=== PATIENT | female | born 1940 | race Caucasian/White ===

== ENCOUNTER → 2017-04-17 | Outpatient (CLI) | payer MEDICARE ==
--- NOTE | 2017-04-17 11:54 | USB ---
Reason for exam: clinical finding. History: Patient is postmenopausal and has history of breast cancer at age 68. Malignant US left CoreBiopsy of the left breast, April 14, 2009. Lumpectomy of the left breast, 2008. Radiation therapy of the left breast, 2008. Saline implants in both breasts, 2002. Took estrogen for 15 years 7 months beginning at age 51. Took progesterone for 15 years 7 months beginning at age 51. Took antineoplastic for 5 years beginning at age 68. Indicated problem(s): palpable abnormality, lump or thickening, and pain in the left breast. Physical Findings: Nurse Summary: left axilla, 0.5cm moves, 3-0.5cm, moves (nurse dw). US Breast LT Prior study comparison: January 10, 2017, mammogram, performed at [facility]. September 13, 2014, mammogram, performed at [facility]. May 05, 2013, mammogram, performed at [facility]. Left breast ultrasound includes all four quadrants, the retroareolar region and axilla. Finding demonstrates a 2.1 x 0.6 x 1.4cm oval, solid lesion at 2 o'clock as seen prior, stable heterogeneous, demonstrating almost 2 years of stability with decrease in size, may represent breast tissue, heterogeneous or sequela of fat necrosis. Axilla scanned, negative. These results were verbally communicated with the patient and result sheet given to the patient on 04/17/17. ASSESSMENT: Benign, BI-RAD 2 RECOMMENDATION: Routine screening mammogram of both breasts in 6 months. Back on schedule for September 2017.
== END | disposition home or self-care (01) ==
LOC: RADUSWWP 10:24
PROVIDERS: ATTEND Internal Medicine
DX: N63.20 Unspecified lump in the left breast, unspecified quadrant (principal)

== ENCOUNTER 2017-11-25 13:02 | Inpatient (IN) | payer MEDICARE ==
--- NOTE | 2017-11-25 13:48 | ED ---
General Adult HPI - General Chief complaint: Psychiatric Symptoms Stated complaint: psych eval Time Seen by Provider: 11/25/17 13:12 Source: patient, RN notes reviewed, old records reviewed Mode of arrival: ambulatory Limitations: no limitations - History of Present Illness Initial comments: 77-year-old female presenting with depression and suicidal ideation. Patient is accompanied by her son. History is obtained from both the patient and her son. The shortness of as stating that she would be better off . She has been prescribed an antidepressant but has not been taking this regularly. According to her son she has been drinking excessive. Her other family members refused to see her. She has been failing to take care of her household, she is not. Her taxes. She is slipping into worsening depression week by week. - Related Data Home Medications Medication Instructions Recorded Confirmed Vit C/E/Zn/Coppr/Lutein/Zeaxan 1 cap PO DAILY 02/15/16 11/25/17 [Preservision Areds 2 Softgel] ALPRAZolam [Xanax] 0.5 mg PO TID PRN 11/25/17 11/25/17 Desvenlafaxine [Desvenlafaxine ER] 50 mg PO DAILY 11/25/17 11/25/17 Allergies Allergy/AdvReac Type Severity Reaction Status Date / Time No Known Allergies Allergy Verified 11/25/17 13:38 Review of Systems ROS Statement: Those systems with pertinent positive or pertinent negative responses have been documented in the HPI. ROS Other: All systems not noted in ROS Statement are negative. Past Medical History Past Medical History: Cancer Additional Past Medical History / Comment(s): breast History of Any Multi-Drug Resistant Organisms: None Reported Past Surgical History: Appendectomy, Breast Surgery Past Psychological History: PTSD Smoking Status: Never smoker Past Alcohol Use History: Occasional Past Drug Use History: None Reported General Exam Limitations: no limitations General appearance: alert, anxious Head exam: Present: atraumatic, normocephalic Eye exam: Present: normal appearance, PERRL, EOMI ENT exam: Present: normal exam Neck exam: Present: normal inspection. Absent: tenderness, meningismus Respiratory exam: Present: normal lung sounds bilaterally. Absent: respiratory distress, wheezes Cardiovascular Exam: Present: regular rate, normal rhythm GI/Abdominal exam: Present: soft. Absent: distended, tenderness Extremities exam: Present: normal inspection, normal capillary refill Back exam: Present: normal inspection. Absent: full ROM, tenderness Neurological exam: Present: alert, oriented X3, CN II-XII intact. Absent: motor sensory deficit Psychiatric exam: Present: depressed, suicidal ideation Skin exam: Present: warm, dry, intact, normal color. Absent: cyanosis, diaphoretic Course Vital Signs 11/25/17 13:09 Temperature 97.7 F Pulse Rate 86 Respiratory 18 Rate Blood Pressure 168/85 O2 Sat by Pulse 96 Oximetry Medical Decision Making - Medical Decision Making 77-year-old female presenting for evaluation of depression and suicidal ideation. Patient is evaluated by EPS in the emergency department and she will be admitted for further psychiatric treatment and evaluation. - Lab Data Result diagrams: 11/25/17 17:48 11/25/17 17:48 Lab Results 11/25/17 11/25/17 11/25/17 Range/Units 13:46 17:48 17:48 WBC 9.4 (3.8-10.6) k/uL RBC 5.03 (3.80-5.40) m/uL Hgb 15.2 (11.4-16.0) gm/dL Hct 45.0 (34.0-46.0) % MCV 89.5 (80.0-100.0) fL MCH 30.3 (25.0-35.0) pg MCHC 33.8 (31.0-37.0) g/dL RDW 13.7 (11.5-15.5) % Plt Count 243 (150-450) k/uL Neutrophils % 76 % Lymphocytes % 16 % Monocytes % 5 % Eosinophils % 1 % Basophils % 0 % Neutrophils # 7.2 (1.3-7.7) k/uL Lymphocytes # 1.5 (1.0-4.8) k/uL Monocytes # 0.5 (0-1.0) k/uL Eosinophils # 0.1 (0-0.7) k/uL Basophils # 0.0 (0-0.2) k/uL Sodium 139 (137-145) mmol/L Potassium 4.0 (3.5-5.1) mmol/L Chloride 103 (98-107) mmol/L Carbon Dioxide 26 (22-30) mmol/L Anion Gap 10 mmol/L BUN 15 (7-17) mg/dL Creatinine 0.60 (0.52-1.04) mg/dL Est GFR (CKD-EPI)AfAm >90 (>60 ml/min/1.73 sqM) Est GFR (CKD-EPI)NonAf 88 (>60 ml/min/1.73 sqM) Glucose 116 H (74-99) mg/dL Calcium 9.8 (8.4-10.2) mg/dL Total Bilirubin 0.9 (0.2-1.3) mg/dL AST 21 (14-36) U/L ALT 24 (9-52) U/L Alkaline Phosphatase 78 (38-126) U/L Total Protein 7.2 (6.3-8.2) g/dL Albumin 4.4 (3.5-5.0) g/dL Urine Color Yellow Urine Appearance Cloudy H (Clear) Urine pH 5.5 (5.0-8.0) Ur Specific [place] 1.016 (1.001-1.035) Urine Protein Trace H (Negative) Urine Glucose (UA) Negative (Negative) Urine Ketones Negative (Negative) Urine Blood Negative (Negative) Urine Nitrite Negative (Negative) Urine Bilirubin Negative (Negative) Urine Urobilinogen <2.0 (<2.0) mg/dL Ur Leukocyte Esterase Large H (Negative) Urine RBC 1 (0-5) /hpf Urine WBC 41 H (0-5) /hpf Ur Squamous Epith Cells 9 H (0-4) /hpf Urine Mucus Occasional H (None) /hpf Urine Opiates Screen Not Detected (NotDetected) Ur Oxycodone Screen Not Detected (NotDetected) Urine Methadone Screen Not Detected (NotDetected) Ur Propoxyphene Screen Not Detected (NotDetected) Ur Barbiturates Screen Not Detected (NotDetected) U Tricyclic Antidepress Not Detected (NotDetected) Ur Phencyclidine Scrn Not Detected (NotDetected) Ur Amphetamines Screen Not Detected (NotDetected) U Methamphetamines Scrn Not Detected (NotDetected) U Benzodiazepines Scrn Not Detected (NotDetected) Urine Cocaine Screen Not Detected (NotDetected) U Marijuana (THC) Screen Not Detected (NotDetected) Disposition Clinical Impression: Depression, Suicidal ideation Disposition: ADMITTED IP TO THIS [facility] Condition: Stable Is patient prescribed a controlled substance at d/c from ED?: No Decision to Admit Reason: Admit from EC Decision Date: 11/25/17 Decision Time: 18:30
[2017-11-25 14:04] LABS: Appearance,Urine Cloudy (Clear); Bilirubin,Urine Negative (Negative); Blood,Urine Negative (Negative); Color,Urine Yellow; Glucose,Urine (UA) Negative (Negative); Ketones,Urine Negative (Negative); Leukocyte Esterase,Urine Large (Negative); Mucus,Urine Occasional /hpf; Nitrite,Urine Negative (Negative); PH, Urine 5.5 (5.0-8.0); Protein,Urine Trace (Negative); RBC,Urine 1 /hpf (0-5); Specific Gravity,Urine 1.016 (1.001-1.035); Squamous Epithelial Cell,Urine 9 /hpf (0-4); Urobilinogen,Urine <2.0 mg/dL (<2.0); WBC,Urine 41 /hpf (0-5)
[2017-11-25 14:10] LABS: Amphetamine Screen,Urine Not Detected (NotDetected); Barbiturate Screen,Urine Not Detected (NotDetected); Benzodiazepines Screen,Urine Not Detected (NotDetected); Cocaine Screen,Urine Not Detected (NotDetected); Methadone Screen, Urine Not Detected (NotDetected); Opiate Screen,Urine Not Detected (NotDetected); Oxycodone Screen, Urine Not Detected (NotDetected); Phencyclidine Screen,Urine Not Detected (NotDetected); Tricyclic Antidepressant,Urine Not Detected (NotDetected); Urn Cannabinoid Scrn Not Detected (NotDetected)
[2017-11-25 17:55] LABS: Basophils % (A) 0 %; Eosinophils # (A) 0.1 k/uL (0-0.7); Eosinophils % (A) 1 %; HGB 15.2 gm/dL (11.4-16.0); Lymphocytes # (A) 1.5 k/uL (1.0-4.8); Lymphocytes % (A) 16 %; MCH 30.3 pg (25.0-35.0); MCHC 33.8 g/dL (31.0-37.0); MCV 89.5 fL (80.0-100.0); Monocytes # (A) 0.5 k/uL (0-1.0); Monocytes % (A) 5 %; Neutrophils # (A) 7.2 k/uL (1.3-7.7); Neutrophils % (A) 76 %; Platelet Count 243 k/uL (150-450); RBC 5.03 m/uL (3.80-5.40); RDW 13.7 % (11.5-15.5); WBC 9.4 k/uL (3.8-10.6)
[2017-11-25 18:05] LABS: ALT 24 U/L (9-52); AST 21 U/L (14-36); Albumin 4.4 g/dL (3.5-5.0); Alkaline Phosphatase 78 U/L (38-126); Anion Gap 10 mmol/L; Blood Urea Nitrogen 15 mg/dL (7-17); Calcium 9.8 mg/dL (8.4-10.2); Carbon Dioxide 26 mmol/L (22-30); Chloride 103 mmol/L (98-107); Glucose 116 mg/dL (74-99); Sodium 139 mmol/L (137-145); Total Bilirubin 0.9 mg/dL (0.2-1.3); Total Protein 7.2 g/dL (6.3-8.2)
[2017-11-25] MEDS ORDERED: MAGNESIUM HYDROXIDE 2,400 MG/10 ML CUP PO PRN (18:24)
[2017-11-25] MEDS ORDERED: MAG HYDROX/AL HYDROX/SIMETH 30 ML CUP PO PRN (18:24)
[2017-11-25] MEDS ORDERED: ACETAMINOPHEN TAB 325 MG TAB PO PRN (18:24)
[2017-11-25] MEDS ORDERED: ALPRAZolam 0.5 MG TAB PO PRN (18:34)
[2017-11-25] MEDS: CEPHALEXIN 500 MG CAP PO SCH (20:33)
--- NOTE | 2017-11-26 06:15 | CONS ---
CONSULTATION DATE OF CONSULTATION: 11/25/17. REASON FOR CONSULTATION: Medical management requested by Dr. Bhatia. CONSULTATION: This is a pleasant 77-year-old patient of Dr. Kyle Mancini. The patient not too long lost her of 60 years of marriage and this is really working on her. Patient feels very lonely, tired, run down. This is interfering with the patient's activities. Also patient was down in [place] where her grandson was in their house and did not make any payments and she had to go to the court for same to repossess the house. Also she is having broken relationship with other the family members and getting into altercations and feels totally frustrated, depressed, does not know what to do including she has not been able to do her taxes. The patient has a history of anxiety depression, does take medications. The patient also has got psoriasis which is under control and macular degeneration. The patient does get injections for the same. The patient is very depressed, suicidal, hence she was admitted to the hospital. REVIEW OF SYSTEMS: CONSTITUTIONAL: Tired. HEENT: None. RESPIRATORY: None. CARDIOVASCULAR: None. GASTROINTESTINAL/GENITOURINARY: None. MUSCULOSKELETAL: None. DERMATOLOGICAL: Some spider bites with irritation lower extremity. HEMATOLOGIC, LYMPHATIC: None. PSYCHIATRY: As above. NEUROLOGICAL: The patient has visual symptoms from recent surgery. PAST MEDICAL HISTORY: Macular degeneration, psoriasis, spider bites, breast cancer. PAST SURGICAL HISTORY: Appendectomy, breast surgery. PSYCH HISTORY: PTSD. SOCIAL HISTORY: No smoking. Alcohol occasionally. The patient is a and recently has been drinking heavy in the hope of not wanting to wake up. HOME MEDICATIONS: 1. Xanax 0.5 p.o. t.i.d. p.r.n. 2. PreserVision AREDS 2 soft gel 1 capsule p.o. daily. 3. Venlafaxine ER 50 mg p.o. daily. ALLERGIES: None. PHYSICAL EXAMINATION: Temperature 98, pulse 79, respiratory 18, blood pressure 140/85, pulse 96% on room air. GENERAL APPEARANCE: Average built, sitting up, somewhat agitated. EYES: Pupils equal. Conjunctivae normal. HEENT: External appearance of nose and ears normal. Oral cavity normal. NECK: JVD not raised. Mass not palpable. RESPIRATORY: Effort, lungs are clear. CARDIOVASCULAR: First and second sounds, no edema. ABDOMEN: Soft, nontender. Liver and spleen not palpable. LYMPHATIC: No lymph node palpable in neck or axillae. PSYCHIATRY: Alert and oriented x3. Mood and affect anxious-appearing. NEUROLOGICAL: Pupils equal. Cranial nerves grossly intact. Power and sensation grossly intact. INVESTIGATIONS: White count 9.4, hemoglobin 15.2, potassium 4, BUN and creatinine normal. UA positive leuko esterase, WBC and 9 squamous cells. ASSESSMENT: 1. Essential hypertension. 2. Macular degeneration. 3. Mild psoriasis especially on the elbows. 4. Spider bites on the lower extremity with healing. PLAN: Patient's psoriasis is mild. Nothing further to be done. The patient may use Benadryl p.r.n. if itching from the spider bite bothers her. For essential hypertension, we will start the patient on lisinopril hydrochlorothiazide. The patient should follow with Dr. Mancini upon discharge. Thank you Dr. Bhatia. MMPAIGE / ELISABETN: [id number] /
[2017-11-26] MEDS: CEPHALEXIN 500 MG CAP PO SCH ×2 (09:33→20:27)
[2017-11-26] MEDS: DESVENLAFAXINE SUCCINATE 50 MG TAB.ER.24H PO SCH (09:33)
[2017-11-26] MEDS: LISINOPRIL-HCTZ 10-12.5 MG 1 EACH TAB PO SCH (09:33)
--- NOTE | 2017-11-26 11:13 | P.HP ---
Psychiatric H&P - . History & Physical: Allergies Allergy/AdvReac Type Severity Reaction Status Date / Time No Known Allergies Allergy Verified 11/25/17 23:29 Vital Signs Temp 97.8 F 11/26/17 05:53 Pulse 62 11/26/17 05:53 Resp 18 11/26/17 05:53 BP 141/66 11/26/17 05:53 Pulse Ox 96 11/25/17 13:09 Intake & Output 11/25/17 11/26/17 11/26/17 18:59 06:59 18:59 Weight 72.575 kg Laboratory Last Values WBC 9.4 k/uL (3.8-10.6) 11/25/17 17:48 RBC 5.03 m/uL (3.80-5.40) 11/25/17 17:48 Hgb 15.2 gm/dL (11.4-16.0) 11/25/17 17:48 Hct 45.0 % (34.0-46.0) 11/25/17 17:48 MCV 89.5 fL (80.0-100.0) 11/25/17 17:48 MCH 30.3 pg (25.0-35.0) 11/25/17 17:48 MCHC 33.8 g/dL (31.0-37.0) 11/25/17 17:48 RDW 13.7 % (11.5-15.5) 11/25/17 17:48 Plt Count 243 k/uL (150-450) 11/25/17 17:48 Neutrophils % 76 % 11/25/17 17:48 Lymphocytes % 16 % 11/25/17 17:48 Monocytes % 5 % 11/25/17 17:48 Eosinophils % 1 % 11/25/17 17:48 Basophils % 0 % 11/25/17 17:48 Neutrophils # 7.2 k/uL (1.3-7.7) 11/25/17 17:48 Lymphocytes # 1.5 k/uL (1.0-4.8) 11/25/17 17:48 Monocytes # 0.5 k/uL (0-1.0) 11/25/17 17:48 Eosinophils # 0.1 k/uL (0-0.7) 11/25/17 17:48 Basophils # 0.0 k/uL (0-0.2) 11/25/17 17:48 Sodium 139 mmol/L (137-145) 11/25/17 17:48 Potassium 4.0 mmol/L (3.5-5.1) 11/25/17 17:48 Chloride 103 mmol/L (98-107) 11/25/17 17:48 Carbon Dioxide 26 mmol/L (22-30) 11/25/17 17:48 Anion Gap 10 mmol/L 11/25/17 17:48 BUN 15 mg/dL (7-17) 11/25/17 17:48 Creatinine 0.60 mg/dL (0.52-1.04) 11/25/17 17:48 Est GFR (CKD-EPI)AfAm >90 (>60 ml/min/1.73 sqM) 11/25/17 17:48 Est GFR (CKD-EPI)NonAf 88 (>60 ml/min/1.73 sqM) 11/25/17 17:48 Glucose 116 mg/dL (74-99) H 11/25/17 17:48 Calcium 9.8 mg/dL (8.4-10.2) 11/25/17 17:48 Total Bilirubin 0.9 mg/dL (0.2-1.3) 11/25/17 17:48 AST 21 U/L (14-36) 11/25/17 17:48 ALT 24 U/L (9-52) 11/25/17 17:48 Alkaline Phosphatase 78 U/L (38-126) 11/25/17 17:48 Total Protein 7.2 g/dL (6.3-8.2) 11/25/17 17:48 Albumin 4.4 g/dL (3.5-5.0) 11/25/17 17:48 TSH 0.930 mIU/L (0.465-4.680) 11/25/17 17:48 Urine Color Yellow 11/25/17 13:46 Urine Appearance Cloudy (Clear) H 11/25/17 13:46 Urine pH 5.5 (5.0-8.0) 11/25/17 13:46 Ur Specific [place] 1.016 (1.001-1.035) 11/25/17 13:46 Urine Protein Trace (Negative) H 11/25/17 13:46 Urine Glucose (UA) Negative (Negative) 11/25/17 13:46 Urine Ketones Negative (Negative) 11/25/17 13:46 Urine Blood Negative (Negative) 11/25/17 13:46 Urine Nitrite Negative (Negative) 11/25/17 13:46 Urine Bilirubin Negative (Negative) 11/25/17 13:46 Urine Urobilinogen <2.0 mg/dL (<2.0) 11/25/17 13:46 Ur Leukocyte Esterase Large (Negative) H 11/25/17 13:46 Urine RBC 1 /hpf (0-5) 11/25/17 13:46 Urine WBC 41 /hpf (0-5) H 11/25/17 13:46 Ur Squamous Epith Cells 9 /hpf (0-4) H 11/25/17 13:46 Urine Mucus Occasional /hpf (None) H 11/25/17 13:46 Urine Opiates Screen Not Detected (NotDetected) 11/25/17 13:46 Ur Oxycodone Screen Not Detected (NotDetected) 11/25/17 13:46 Urine Methadone Screen Not Detected (NotDetected) 11/25/17 13:46 Ur Propoxyphene Screen Not Detected (NotDetected) 11/25/17 13:46 Ur Barbiturates Screen Not Detected (NotDetected) 11/25/17 13:46 U Tricyclic Antidepress Not Detected (NotDetected) 11/25/17 13:46 Ur Phencyclidine Scrn Not Detected (NotDetected) 11/25/17 13:46 Ur Amphetamines Screen Not Detected (NotDetected) 11/25/17 13:46 U Methamphetamines Scrn Not Detected (NotDetected) 11/25/17 13:46 U Benzodiazepines Scrn Not Detected (NotDetected) 11/25/17 13:46 Urine Cocaine Screen Not Detected (NotDetected) 11/25/17 13:46 U Marijuana (THC) Screen Not Detected (NotDetected) 11/25/17 13:46 11/26/17 11:01 IDENTIFYING DATA: This patient is a 77-year-old who presents with acute symptoms of depression with suicidal ideation. HPI: The patient was brought to the hospital by her son as he was concerned for her safety. The patient reported feeling significantly depressed. She has been tearful on a regular basis. Appetite is been very low and she has lost 20 pounds over the last 2-3 months. Sleep has been fragmented. She described herself as feeling very lonely she feels lost and directionless. She does have hopelessness thinking. She frequently has passive thoughts of not wanting to wake up. She had given consideration to taking medication with alcohol as a means to overdose. This occurs in the context of losing her cancer in February 2017. She had cared for him for approximately 22 months before his . They were for 60 years and she states they had a great marriage and she doesn't know how to go on without him. She has been isolating at home she has not been connecting with her friends. Equally stressful she feels her sons have abandoned her except for 1 son who has been helping. She describes having a recent verbal altercation with her granddaughter. She states that a grandson in [place] took advantage of the situation leaving her with an empty damaged house that she needs to have repaired and soul. He is endorsing no significant anxiety symptoms on a regular basis she endorses no panic attacks. She states that she will use of Xanax 0.25 mg about twice a week when she feels overwhelmed. She is reporting no homicidal ideation she reports no auditory or visual hallucinations or any specific delusions. She states she has no firearms at home. PAST PSYCHIATRIC HISTORY: No prior inpatient psychiatric admissions, no history of suicide attempts, primary care physician put her on Pristiq 50 mg she states that she accidentally compliant with it only about every other day. She is prescribed Xanax 0.5 mg up to 3 times a day as needed. Again she reports using a half tab about twice a week. She may have been on another unknown antidepressant that she cannot recall the name Linda us going through a list of possibilities. She worked with a grief counselor through a local [facility] soon after the of her but she did not find it helpful as they simply provided platitudes. She has been on a list to see a counselor at a local agency for the last 4 weeks. She tried to contact no other agency. PMH: Psoriasis, likely urinary tract infection, macular degeneration, possible recent cellulitis due to a spider bite ALLERGIES: NO KNOWN DRUG ALLERGIES MEDICATIONS: refer to MAR CHEMICAL DEPENDENCY HISTORY: The patient reports using a bottle of wine every 2 weeks. She reports no excessive use of alcohol. She reports no use of marijuana or any other illicit drug. She has never been placed in residential treatment for chemical dependency reasons. FAMILY PSYCHIATRIC HISTORY: "They're all crazy", no known suicides in the family FAMILY CHEMICAL DEPENDENCY HISTORY: Her son is known to have an alcohol use disorder and has been in alf for multiple DUI arrests SOCIAL HISTORY: The patient is 77 years old she is a as of February 2017. She was for 60 years and characterized it as being a great marriage. 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 She has a high school education with some college credits. No history of service. She is originally from the [facility] and has been in the [facility] for numerous years. She has 3 sons she finds one to be helpful the other to have little contact with her. She has 1 younger sister area she indicates she has not socialized with friends in quite some time. Legal history none reported, abuse history none reported. MENTAL STATUS EXAM: The patient is a female appearing younger than her stated age. She wears eyeglasses. She is dressed in her own clothing. Hygiene and grooming are adequate. She is cooperative and pleasant upon approach. She reports a depressed and hopeless mood and she is tearful throughout the session. She describes feeling lost and directionless. She is reporting passive suicidal ideation. She reports no thoughts of harming others. She is reporting no auditory or visual hallucinations or any specific delusions. There is no observed evidence of psychosis. Thought process is linear she demonstrates no tangential thinking loose associations or flight of ideas. She does not appear hypomanic or manic. She demonstrates no verbal or physical aggressiveness or any abnormal involuntary movements. She is fully oriented to person place and date. She is able to easily spell world backwards. Overall affect is dysphoric. STRENGTHS/WEAKNESSES: Strengths: Housing, financial resources, assistance from one of her sons weaknesses: Ongoing grief and loss, strained relationship with several family members INTELLECTUAL FUNCTIONING: Above average IMPRESSIONS: [] 1. Major depressive disorder, recurrent severe without psychosis, complicated bereavement 2. Rule out cluster B traits 3. Urinary tract infection, recent cellulitis, psoriasis, macular degeneration PLAN: The patient has been admitted to the mental health unit voluntarily. We reviewed her presenting symptoms and treatment options. We will continue the Busteriq 50 mg daily and we discussed the importance of her complying with each day. Xanax is available as needed for acute anxiety she is encouraged not to use of medication possible. We discussed the importance of working with an individual therapist to continue processing her grief, re-engaging in activities , and processing difficult family relationships with limit setting. She has been seen by internal medicine for routine history and physical exam. She remains on Keflex. Social work has met with the patient complete a psychosocial assessment. We will monitor her for safety and encourage her participation in the milieu.
[2017-11-27] MEDS: CEPHALEXIN 500 MG CAP PO SCH ×2 (08:51→20:46)
[2017-11-27] MEDS: LISINOPRIL-HCTZ 10-12.5 MG 1 EACH TAB PO SCH (08:51)
[2017-11-27] MEDS: DESVENLAFAXINE SUCCINATE 50 MG TAB.ER.24H PO SCH (08:51)
[2017-11-27 09:33] VITALS: RESP 16
--- NOTE | 2017-11-27 14:33 | P.PN ---
Subjective Progress Note Date: 11/27/17 Principal diagnosis: Major depressive disorder recurrent severe without psychotic features, bereavement I reviewed the medical record and interviewed the patient. She is a 77-year- old woman admitted to the psychiatric unit with depression and suicidal ideation. Dr. Bhatia evaluate her and diagnosed major depressive disorder and complicated bereavement. She has been depressed at least since the of her in February 2017 but also described how overwhelmed she felt caring for him during his long struggle lung cancer. She complained of continued feelings of depression but denied current suicidal ideation or wishes. She talked about her 's struggle with cancer, his suffering and eventual , and ongoing conflict among her large and extended family. She understands that she is depressed and recognizes a need for mental health treatment. She is very interested and engaging in outpatient individual psychotherapy and is on a wait list at a [facility]. Objective - Vital Signs Vital signs: Vital Signs Temp 97.8 F 11/27/17 06:36 Pulse 91 11/27/17 09:32 Resp 16 11/27/17 09:32 BP 114/60 11/27/17 09:32 Pulse Ox 96 11/25/17 13:09 - Psychiatric Psychiatric Comment(s): She presented as a casually dressed and carefully groomed 77-year-old woman who looked younger than his stated age. She made eye contact and attended the interview. She had no prominent physical abnormalities. She had a depressed facial expression and cried intermittently during the interview. She is alert and oriented to person, place and time. She showed psychomotor retardation but no abnormal involuntary movements. Her speech was spontaneous with normal rate, rhythm and volume. Affect was depressed, anxious and not reactive. She denied current suicidal ideation or wishes. She expressed depressive cognitions including hopelessness and helplessness. She did not express ideas reference, paranoid ideation or delusions. Her thinking was abstract and associations were coherent, logical and goal directed. She denied hallucinations and did not appear to be responding to internal stimuli. - Labs CBC & Chem 7: 11/25/17 17:48 11/25/17 17:48 Assessment and Plan Assessment: She is an elderly woman admitted to the psychiatric unit with marked symptoms of depression and suicidal ideation. She has a number of stressors the most significant of which was a of her conflict with family. She has insight on her need for mental health services and treatment. (1) Suicidal ideation Current Visit: Yes Status: Acute Code(s): R45.851 - SUICIDAL IDEATIONS SNOMED Code(s): 2175494 (2) Major depressive disorder, recurrent severe without psychotic features Current Visit: Yes Status: Acute Code(s): F33.2 - MAJOR DEPRESSV DISORDER, RECURRENT SEVERE W/O PSYCH FEATURES SNOMED Code(s): 98471526 (3) Bereavement Current Visit: Yes Status: Acute Code(s): Z63.4 - DISAPPEARANCE AND OF FAMILY MEMBER SNOMED Code(s): 44546882 (4) Family conflict Current Visit: Yes Status: Acute Code(s): Z63.8 - OTHER SPECIFIED PROBLEMS RELATED TO PRIMARY SUPPORT GROUP SNOMED Code(s): 09126534 Plan: Continue inpatient hospitalization. Continue safety precautions. Continue Pristiq 50 mg daily. Consider augmentation strategies either with lithium or second generation antipsychotic. Continue Xanax 0.5 mg twice a day when necessary. Encouraged continued participation in therapeutic groups and activities. machine made shoe unit worker to assist with coordinate aftercare services. Evaluate clinical status and response to treatment on a daily basis.
[2017-11-28 06:43] VITALS: TEMP 98
[2017-11-28] MEDS: CEPHALEXIN 500 MG CAP PO SCH (08:55)
[2017-11-28] MEDS: DESVENLAFAXINE SUCCINATE 50 MG TAB.ER.24H PO SCH (08:55)
[2017-11-28] MEDS: LISINOPRIL-HCTZ 10-12.5 MG 1 EACH TAB PO SCH (08:57)
[2017-11-28 08:58] VITALS: BP 101/54; PULSE 106
--- NOTE | 2017-11-28 16:05 | P.DS ---
Providers Date of admission: 11/25/17 18:06 Attending physician: Ty Bhatia Consults: 11/25/17 18:24 Consult Physician Routine Consulting Provider: Marco Almonte Consult Reason/Comments: H and P and medical management Do you want consulting provider notified?: Yes Primary care physician: Kyle Mancini - Discharge Diagnosis(es) (1) Suicidal ideation Status: Resolved Priority: Low (2) Major depressive disorder, recurrent severe without psychotic features Status: Acute (3) Bereavement Status: Acute (4) Family conflict Status: Acute Hospital Course: The patient is a 77-year-old woman admitted to the psychiatric unit voluntarily with complaints of depression and suicidal ideation. The depression has become progressively worse since the of her in February 2017. He had a long and difficult illness and eventually as a result of metastatic lung cancer. She described conflict with her children, grandchildren and great-grandchildren and conflict between her children all contributing to her depression. She had no prior psychiatric hospitalization or formal mental health treatment. She met with a grief counselor through her oriental [facility]. We admitted her to the psychiatric unit under the care of Dr. Bhatia. He provided a comprehensive biopsychosocial assessment. The technology methodology consultant technician's helper completed initial physical exam and medical history and diagnosis essential hypertension, macular degeneration, mild psoriasis and a spider bilateral lower extremity with healing. He was recommended a lisinopril hydrochlorothiazide 10- 12.5 mg daily for the treatment of hypertension and Keflex 500 twice a day Jay infection secondary to the spider bite. We prescribed Pristiq 50 mg daily for the treatment of depression. She participated in therapeutic groups and posed no management problem. She met with the high school social studies tutor will coordinate aftercare services through [facility] outpatient mental health clinic. At time of discharge she presented as a neatly dressed and casually groomed 77- year-old female who was pleasant on approach. She made eye contact and attended to the interview. She had a blunted but bright facial expression. She had slight psychomotor retardation but no abnormal movements. Her speech was spontaneous with normal rate, rhythm and volume. Affect was depressed but stable and appropriate. She denied suicidal ideation or wishes. She denied homicidal ideation. She denied feeling hopeless, helpless or worthless. She did not express ideas reference, paranoid ideation or delusions. Her thinking was abstract and associations were coherent and logical. She denied hallucinations and didn't appear to be responding to internal stimuli. Patient Condition at Discharge: Stable Plan - Discharge Summary Discharge Rx Participant: No New Discharge Prescriptions: New Cephalexin [Keflex] 500 mg PO BID #14 cap Lisinopril-Hctz 10-12.5 mg [Zestoretic 10-12.5] 1 each PO DAILY #30 tab Continue Vit C/E/Zn/Coppr/Lutein/Zeaxan [Preservision Areds 2 Softgel] 1 cap PO DAILY ALPRAZolam [Xanax] 0.5 mg PO TID PRN PRN Reason: Anxiety Desvenlafaxine [Desvenlafaxine ER] 50 mg PO DAILY #30 tab.er.24h Discharge Medication List Vit C/E/Zn/Coppr/Lutein/Zeaxan [Preservision Areds 2 Softgel] 1 cap PO DAILY [History] ALPRAZolam [Xanax] 0.5 mg PO TID PRN 11/25/17 [History] Cephalexin [Keflex] 500 mg PO BID #14 cap 11/28/17 [Rx] Desvenlafaxine [Desvenlafaxine ER] 50 mg PO DAILY #30 tab.er.24h 11/28/17 [Rx] Lisinopril-Hctz 10-12.5 mg [Zestoretic 10-12.5] 1 each PO DAILY #30 tab [Rx] Follow up Appointment(s)/Referral(s): [facility] [Outside] - 11/29/17 11:00 am (Deandre Castro Please arrive 15 minutes prior to appoitment for paperwork ) Kyle Mancini MD [Primary Care Provider] - 1-2 days Patient Instructions/Handouts: Depression (DC), Grief and Loss (DC) Activity/Diet/Wound Care/Special Instructions: Remove all weapons and firearms from your home; Refrain from street drugs and alcohol; Activity and diet as tolerated; Follow-up with your PCP in 1-2 days; Keep all scheduled follow-up appointments for continuity of care; If you're in need of medication refills, contact your PCP for medical meds. and your aftercare Psychiatrist for psychiatric meds.; If you have any problems, call the Crisis Line at or [phone] in case of emergency or go to the nearest ER for a psychiatric evaluation. Discharge Disposition: HOME SELF-CARE
== END 2017-11-28 15:20 | disposition home or self-care (01) | DRG 885 ==
LOC: EC 13:02 → 3MHU 18:06
PROVIDERS: ADMIT Psychiatry & Neurology Psychiatry; ATTEND Psychiatry & Neurology Psychiatry
DX: F33.2 Major depressive disorder, recurrent severe without psychotic features (principal); R45.851 Suicidal ideations; F41.9 Anxiety disorder, unspecified; L40.9 Psoriasis, unspecified; H35.30 Unspecified macular degeneration; F43.10 Post-traumatic stress disorder, unspecified; I10 Essential (primary) hypertension; W57.XXXA Bitten or stung by nonvenomous insect and other nonvenomous arthropods, initial encounter; T43.296A Underdosing of other antidepressants, initial encounter; T42.4X6A Underdosing of benzodiazepines, initial encounter; Z91.138 Patient's unintentional underdosing of medication regimen for other reason; Z85.3 Personal history of malignant neoplasm of breast; Z90.49 Acquired absence of other specified parts of digestive tract; Z98.890 Other specified postprocedural states; Z79.899 Other long term (current) drug therapy; Z63.4 Disappearance and death of family member; Z63.8 Other specified problems related to primary support group; Z87.440 Personal history of urinary (tract) infections
CPT/HCPCS: 36415; 80053; 80306; 81001; 82075; 84443; 85025; 99285

== ENCOUNTER → 2018-03-19 | Outpatient (CLI) | payer MEDICARE ==
[2018-03-19 08:03] LABS: Blood Urea Nitrogen 16 mg/dL (7-17)
--- NOTE | 2018-03-19 08:52 | CT ---
EXAMINATION TYPE: CT chest w con DATE OF EXAM: 03/19/2018 COMPARISON: NONE HISTORY: Chronic cough CT DLP: 184.9 mGycm. Automated Exposure Control for Dose Reduction was Utilized. TECHNIQUE: CT scan of the thorax is performed following with IV Contrast, patient injected with 100 mL of Isovue 300. FINDINGS: LUNGS: The lungs are grossly clear, there is no concerning parenchymal mass or nodule identified. T here is very mild The cuffing within the lingula and peripheral subpleural reticular opacities with atelectasis on seri es 4 image 36. Peribronchial cuffing is seen on image 31 and 32 within the lingula. Similar findings are seen to a lesser degree within the right middle lobe on image 36 through 38. Very mild bibasilar subsegmental atelectasis is seen. There is no pleural effusion or pneumothorax seen. The tracheobron chial tree is patent. MEDIASTINUM: There are no greater than 1 cm hilar or mediastinal lymph nodes. No pericardial effusi on is seen. Mild coronary artery calcifications are present. OTHER: There are bilateral prepectoral breast implants. Diffuse gastric thickening dependently may re late to incomplete distention. This is also seen at the gastroesophageal junction on series 3 image 5 3. Scattered colonic diverticula are partially visualized. Mild multilevel degenerative changes of th e thoracic spine are noted. IMPRESSION: 1. No pulmonary mass or focal consolidation. However minimal peribronchial cuffing is seen within the lingula and right middle lobe that could relate to infectious bronchitis or reactive airway disease. 2. Thickening at the gastroesophageal junction and throughout the gastric fundus and body that could relate to incomplete distention although further evaluation with esophagram/upper GI or direct visual ization could be performed.
== END ==
LOC: RADCTMAIN 07:20
PROVIDERS: ATTEND Physician Assistant
DX: R05 Cough (principal)
CPT/HCPCS: 82565; 84520; 71260; 36415; Q9967

== ENCOUNTER 2018-03-26 10:24 | Day surgery (SDC) | payer MEDICARE ==
[2018-03-25 11:06] VITALS: BMI 25.7
[~2018-03-26 10:24] MED LIST: HYDROmorphone 0.5 MG/0.5 ML SYRINGE IVP PRN; LACTATED RINGERS 1,000 ML IV SCH
[2018-03-26 11:12] VITALS: RESP 16; TEMP 97.8
[2018-03-26] MEDS ORDERED: PROPOFOL 10 MG/ML 20 ML VIAL IV ONE (12:05)
--- NOTE | 2018-03-26 12:17 | P.PCN ---
Date of Procedure: 03/26/18 Procedure(s) Performed: BRIEF HISTORY: Patient is a 77-year-old, pleasant, white female, scheduled for an upper endoscopy as a part of value should of abnormal CT of the chest that showed thickened distal esophagus. She is otherwise a symptomatic and denies any heartburn, dysphagia or odynophagia. PROCEDURE PERFORMED: Esophagogastroduodenoscopy with biopsy. PREOPERATIVE DIAGNOSIS: Abnormal CT of the chest showing thickened distal esophagus. IV sedation per anesthesia. PROCEDURE: After informed consent was obtained, the patient was brought into the endoscopy unit. IV sedation was administered by Anesthesia under continuous monitoring. Initially the Olympus GIF-140 video endoscope was inserted into the mouth. Esophagus intubated without any difficulty. It was gradually advanced into the stomach and duodenum and carefully examined. The bulb and the second part of the duodenum appeared normal. The scope at this time was withdrawn to the stomach, adequately insufflated with air, and upon careful examination, mucosa of the antrum, body, cardia and the fundus appeared normal. The scope was then withdrawn into the esophagus. The GE junction was located at 39 cm from the incisors. The distal esophageal folds were slightly thickened but there was no evidence of esophagitis, esophageal stricture or esophageal ulcerations. The rest of the esophagus appeared normal. There were no erosions or ulcerations seen and the patient tolerated the procedure well. IMPRESSION: 1. Mild thickening of the distal esophageal folds status post biopsy. 2. No evidence of esophagitis. RECOMMENDATIONS: The findings of this examination were discussed with the patient as well as a family. She was advised to follow with the biopsy results..
[2018-03-26 13:31] VITALS: BP 133/55; PULSE 68
== END 2018-03-26 13:10 | disposition home or self-care (01) ==
LOC: ORWHC2ENDO 10:24
PROVIDERS: ATTEND Internal Medicine Gastroenterology
DX: R94.8 Abnormal results of function studies of other organs and systems (principal); Z79.899 Other long term (current) drug therapy; Z87.891 Personal history of nicotine dependence; F39 Unspecified mood [affective] disorder
CPT/HCPCS: 43239; J2704; 88305

== ENCOUNTER → 2019-06-26 | Outpatient (CLI) | payer MEDICARE ==
--- NOTE | 2019-06-26 09:18 | US ---
EXAMINATION TYPE: US duplex aorta DATE OF EXAM: 06/26/2019 COMPARISON: CT CLINICAL HISTORY: R20.8 Other disturbances of skin sensations. Pt states cold lower extremities EXAM MEASUREMENTS: Abdominal Aorta: Proximal: 2.1 x 2.3 cm Mid: 1.5 x 1.5 cm Distal: 1.5 x 1.7 cm Bifurcation: SERGIO: 1.0 x 1.0 cm NENITA: 0.9 x 0.9 cm No abdominal aortic aneurysm seen. IMPRESSION: No sonographic evidence of abdominal aortic aneurysm in the visualized portions of the ab dominal aorta.
--- NOTE | 2019-07-01 09:11 | P.ARTDOP ---
Arterial Doppler LOWER EXTREMITY ARTERIAL DOPPLER: DATE OF SERVICE: 05/29/2019 Reason for study: : 50. Doppler waveforms: Multiphasic bilaterally throughout. Pulse volume recording: []. Pressure gradients: None. Ankle-brachial indices: Greater than 1 bilaterally. Toe pressures: [] on the right, [] on the left Impression: Normal study.
== END | disposition home or self-care (01) ==
LOC: RADUSWWP 08:44
PROVIDERS: ATTEND Internal Medicine
DX: R20.8 Other disturbances of skin sensation (principal)
CPT/HCPCS: 93922; 93979

== ENCOUNTER → 2019-08-04 | Outpatient (CLI) | payer MEDICARE ==
--- NOTE | 2019-08-04 22:13 | CONS ---
CONSULTATION REASON FOR CONSULTATION: This is a consultation for sleep apnea. HISTORY OF PRESENT ILLNESS: A 78-year-old female patient, comes in for sleep apnea evaluation. The patient is 78, and she is diagnosed recently having some dementia. The patient is currently taking Aricept. She was diagnosed having Alzheimer's dementia by Dr. Arndt her neurologist in [place]. At the same time, there is a concern that she may have an underlying sleep apnea. The patient also has dysregulated and abnormal sleep schedule. She is going to bed at various times. She is waking up various times in the morning. For instance, she used to go to bed around 10 p.m., and currently she is staying up and she goes to bed somewhere between 3 and 4 a.m. and she gets out of bed around 11 am in the morning. She averages around 7 hours of sleep and she may take naps during the day. Things got worse after her and after she retired. She wakes up tired and she has problems with memory and concentration. As mentioned, this could be in part related to her underlying dementia. She has been also told to stop breathing and she occasionally wakes up gasping for air. This obviously raises the concern for sleep apnea. No nocturnal chest pain, heartburn or shortness of breath. Her current Cranston score of 12. No sleep paralysis. No hallucinations. No cataplexy. No nocturia. PAST MEDICAL HISTORY: Dementia of the Alzheimer's type, and chronic sinus allergies. SURGICAL HISTORY: Includes lumpectomy. DRUG ALLERGIES: Not known. OUTPATIENT MEDICATION: Includes Zoloft and Aricept, glaucoma related eyedrops and Lolis for nasal congestion and current drainage. SOCIAL HISTORY: The patient is a nonsmoker. No history of alcohol. No history of IV drugs. FAMILY HISTORY: Negative for sleep breathing disorder. The patient's . Son is healthy. REVIEW OF SYSTEMS: Fourteen-point review of system was done. No reported history of nocturnal chest pain. No shortness of breath, heartburn. She is a nose breather. She does not grind her teeth. No insomnia. No symptoms of restless from lower extremities. No sleep paralysis. No hallucinations. No cataplexy. No head trauma. No meningitis. PHYSICAL EXAMINATION: BP 141/83, pulse is 62, respirations 16, temp 98.3. Saturation 98% on room air. Height is 5 feet 4 inches, weight is 169 and BMI 25.8, and neck size is 13.5 inches. General appearance: Calm and comfortable. Head is atraumatic, normocephalic. NECK: Supple. There is no JVD. No goiter or neck masses. Mallampati class IV. LUNGS: Clear to auscultation. HEART: Sounds are regular rate and rhythm. Normal S1, S2. No S3, S4. No murmurs. ABDOMEN: Soft, nontender. No organomegaly. EXTREMITIES: No edema. No cyanosis or clubbing. NEUROLOGIC: Some mild cognitive impairment including memory problems. IMPRESSION: 1. Chronic hypersomnia. Cranston score of 12. 2. Irregular sleep-wake cycle. 3. Possible obstructive sleep apnea as the patient has snoring and witnessed apneas according to the family members. 4. Memory deficits probably related to underlying dementia. Sleep apnea probably has no major contribution to that. 5. Chronic sinus allergies. 6. History of depression. PLAN: Encourage to sleep and wake up at a schedule time. Desired time to go to bed should be 11:00 pm and waking up time should be around 7-8 a.m. in the morning and she was advised to put her alarm for silo operator hour arousals and avoid naps during the day. She would try to keep this scheduled for the same hours every night. We discussed issues related to her sleep schedule and sleep hygiene. The patient will be [facility] weeks time to undergo a polysomnogram to assess her sleep quality as she works on her sleep schedule and quantity. We will continue to follow and make further recommendations based on the results of the sleep study and decide if further treatment is needed. MMODL / IJN: [id number] /
== END | disposition home or self-care (01) ==
LOC: SLEEP 13:58
PROVIDERS: ATTEND Internal Medicine Critical Care Medicine
DX: R06.83 Snoring (principal); J32.9 Chronic sinusitis, unspecified; Z86.59 Personal history of other mental and behavioral disorders; G30.9 Alzheimer's disease, unspecified; F02.80 Dementia in other diseases classified elsewhere, unspecified severity, without behavioral disturbance, psychotic disturbance, mood disturbance, and anxiety; Z79.899 Other long term (current) drug therapy
CPT/HCPCS: 99211

== ENCOUNTER 2021-05-27 09:21 | Emergency (ER) | payer MEDICARE ==
[2021-05-27] MEDS ORDERED: SODIUM CHLORIDE 0.9% 500 ML 500 ML IV STA (09:31)
[2021-05-27] MEDS ORDERED: SODIUM CHLORIDE 0.9% 1,000 ML IV STA (09:31)
--- NOTE | 2021-05-27 09:39 | ED ---
Fall HPI - General Stated Complaint: Black Eye RT Time Seen by Provider: 05/27/21 09:21 Source: patient, EMS, RN notes reviewed, old records reviewed - History of Present Illness Initial Comments: 80-year-old female with a history of vertigo and a history of breast cancer by history was brought in by EMS because of a possible fall patient was noted to have a black eye on the right orbital area she is not recall a fall she denies any pain except for around the orbital area no neck or back pain no fevers chills sweats nausea vomiting patient herself appears to be somewhat of a poor historian per paramedics dementia as suspected. No history available patient has seem at the crew in the lobby of her facility is unclear who called the ambulance. No other current complaints or modifying factors patient was ambulatory MD Complaint: fall - Related Data Home Medications Medication Instructions Recorded Confirmed Donepezil [Aricept] 10 mg PO DAILY 05/27/21 05/27/21 Imipramine [Tofranil] 25 mg PO BID 05/27/21 05/27/21 Latanoprost [Xalatan 0.005%] 1 drop BOTH EYES HS 05/27/21 05/27/21 Memantine [Namenda] 5 mg PO BID 05/27/21 05/27/21 Sertraline [Zoloft] 200 mg PO DAILY 05/27/21 05/27/21 Allergies Allergy/AdvReac Type Severity Reaction Status Date / Time bee venom protein (honey bee) Allergy Swelling Verified 05/27/21 10:59 Review of Systems ROS Statement: Those systems with pertinent positive or pertinent negative responses have been documented in the HPI. ROS Other: All systems not noted in ROS Statement are negative. Past Medical History Past Medical History: Cancer Additional Past Medical History / Comment(s): breast cancer, past history hypertension ,MACULAR DEGENERATION History of Any Multi-Drug Resistant Organisms: None Reported Past Surgical History: Appendectomy, Breast Surgery Additional Past Surgical History / Comment(s): COLONOSCOPY Past Anesthesia/Blood Transfusion Reactions: No Reported Reaction Past Psychological History: PTSD Past Alcohol Use History: Occasional Additional Past Alcohol Use History / Comment(s): STARTED SMOKING AT AGE 16 QUIT AT 40 SMOKED 5 CIG PER DAY Past Drug Use History: None Reported - Past Family History Mother Family Medical History: No Reported History General Exam - General Exam Comments Initial Comments: This is a well-developed well-nourished awake alert no somewhat confused female. Except for the confusion patient otherwise demonstrate a Dell Coma Scale 14 Limitations: altered mental status General appearance: alert, in no apparent distress Head exam: Present: other (Ecchymosis seen about the right orbit including the forehead periorbital region no step-off or crepitation) Eye exam: Present: PERRL, EOMI, other (Evidence of mild arcus senilis) Pupils: Present: normal accommodation ENT exam: Present: mucous membranes dry Neck exam: Present: normal inspection. Absent: tenderness, meningismus, lymphadenopathy Respiratory exam: Present: normal lung sounds bilaterally. Absent: respiratory distress, wheezes, rales, rhonchi, stridor Cardiovascular Exam: Present: regular rate, normal rhythm, normal heart sounds. Absent: systolic murmur, diastolic murmur, rubs, gallop, clicks GI/Abdominal exam: Present: soft, normal bowel sounds. Absent: distended, tenderness, guarding, rebound, rigid Extremities exam: Present: normal inspection, full ROM, normal capillary refill. Absent: tenderness, pedal edema, joint swelling, calf tenderness Back exam: Present: normal inspection Neurological exam: Present: alert, altered, CN II-XII intact Psychiatric exam: Present: normal affect, normal mood Skin exam: Present: warm, dry, intact, normal color. Absent: rash Course Vital Signs 05/27/21 05/27/21 09:34 11:36 Temperature 98.6 F Pulse Rate 78 75 Respiratory 16 18 Rate Blood Pressure 158/89 155/66 O2 Sat by Pulse 94 L 97 Oximetry Medical Decision Making - Medical Decision Making Patient is awake alert on reevaluation I did her family member was present. Patient be discharged follow-up - Lab Data Result diagrams: 05/27/21 10:17 05/27/21 10:17 Lab Results 05/27/21 05/27/21 05/27/21 Range/Units 10:17 10:17 10:17 WBC 10.7 H (3.8-10.6) k/uL RBC 4.68 (3.80-5.40) m/uL Hgb 13.8 (11.4-16.0) gm/dL Hct 42.8 (34.0-46.0) % MCV 91.6 (80.0-100.0) fL MCH 29.6 (25.0-35.0) pg MCHC 32.3 (31.0-37.0) g/dL RDW 13.8 (11.5-15.5) % Plt Count 191 (150-450) k/uL MPV 7.9 Neutrophils % 77 % Lymphocytes % 12 % Monocytes % 6 % Eosinophils % 2 % Basophils % 0 % Neutrophils # 8.3 H (1.3-7.7) k/uL Lymphocytes # 1.3 (1.0-4.8) k/uL Monocytes # 0.7 (0-1.0) k/uL Eosinophils # 0.2 (0-0.7) k/uL Basophils # 0.0 (0-0.2) k/uL PT 13.4 H (9.0-12.0) sec INR 1.3 H (<1.2) APTT 30.1 H (22.0-30.0) sec Sodium 139 (137-145) mmol/L Potassium 4.6 (3.5-5.1) mmol/L Chloride 104 (98-107) mmol/L Carbon Dioxide 26 (22-30) mmol/L Anion Gap 9 mmol/L BUN 15 (7-17) mg/dL Creatinine 0.77 (0.52-1.04) mg/dL Est GFR (CKD-EPI)AfAm 84 (>60 ml/min/1.73 sqM) Est GFR (CKD-EPI)NonAf 73 (>60 ml/min/1.73 sqM) Glucose 99 (74-99) mg/dL Calcium 9.1 (8.4-10.2) mg/dL Magnesium 1.8 (1.6-2.3) mg/dL Total Bilirubin 0.5 (0.2-1.3) mg/dL AST 26 (14-36) U/L ALT 16 (4-34) U/L Alkaline Phosphatase 69 (38-126) U/L Troponin I (0.000-0.034) ng/mL Total Protein 7.0 (6.3-8.2) g/dL Albumin 4.2 (3.5-5.0) g/dL Urine Color Urine Appearance (Clear) Urine pH (5.0-8.0) Ur Specific [place] (1.001-1.035) Urine Protein (Negative) Urine Glucose (UA) (Negative) Urine Ketones (Negative) Urine Blood (Negative) Urine Nitrite (Negative) Urine Bilirubin (Negative) Urine Urobilinogen (<2.0) mg/dL Ur Leukocyte Esterase (Negative) Urine RBC (0-5) /hpf Urine WBC (0-5) /hpf Ur Squamous Epith Cells (0-4) /hpf Urine Mucus (None) /hpf Serum Alcohol <10 mg/dL 05/27/21 05/27/21 Range/Units 10:17 10:23 WBC (3.8-10.6) k/uL RBC (3.80-5.40) m/uL Hgb (11.4-16.0) gm/dL Hct (34.0-46.0) % MCV (80.0-100.0) fL MCH (25.0-35.0) pg MCHC (31.0-37.0) g/dL RDW (11.5-15.5) % Plt Count (150-450) k/uL MPV Neutrophils % % Lymphocytes % % Monocytes % % Eosinophils % % Basophils % % Neutrophils # (1.3-7.7) k/uL Lymphocytes # (1.0-4.8) k/uL Monocytes # (0-1.0) k/uL Eosinophils # (0-0.7) k/uL Basophils # (0-0.2) k/uL PT (9.0-12.0) sec INR (<1.2) APTT (22.0-30.0) sec Sodium (137-145) mmol/L Potassium (3.5-5.1) mmol/L Chloride (98-107) mmol/L Carbon Dioxide (22-30) mmol/L Anion Gap mmol/L BUN (7-17) mg/dL Creatinine (0.52-1.04) mg/dL Est GFR (CKD-EPI)AfAm (>60 ml/min/1.73 sqM) Est GFR (CKD-EPI)NonAf (>60 ml/min/1.73 sqM) Glucose (74-99) mg/dL Calcium (8.4-10.2) mg/dL Magnesium (1.6-2.3) mg/dL Total Bilirubin (0.2-1.3) mg/dL AST (14-36) U/L ALT (4-34) U/L Alkaline Phosphatase (38-126) U/L Troponin I <0.012 (0.000-0.034) ng/mL Total Protein (6.3-8.2) g/dL Albumin (3.5-5.0) g/dL Urine Color Yellow Urine Appearance Clear (Clear) Urine pH 5.5 (5.0-8.0) Ur Specific [place] 1.018 (1.001-1.035) Urine Protein Negative (Negative) Urine Glucose (UA) Negative (Negative) Urine Ketones Negative (Negative) Urine Blood Negative (Negative) Urine Nitrite Negative (Negative) Urine Bilirubin Negative (Negative) Urine Urobilinogen <2.0 (<2.0) mg/dL Ur Leukocyte Esterase Moderate H (Negative) Urine RBC 1 (0-5) /hpf Urine WBC 4 (0-5) /hpf Ur Squamous Epith Cells 3 (0-4) /hpf Urine Mucus Rare H (None) /hpf Serum Alcohol mg/dL - EKG Data -: EKG Interpreted by Oh EKG shows normal: sinus rhythm EKG Comments: Sinus rhythm a 72. Interval 182 QRS duration 84 QT since QTC 424/464 evidence of left atrial enlargement nonspecific septal configuration - Radiology Data Radiology results: report reviewed (Imaging reviewed no evidence of acute processes other than the hematoma noted around the right orbit.), image reviewed Disposition Clinical Impression: Contusion of right orbital tissues Disposition: HOME SELF-CARE Condition: Good Instructions (If sedation given, give patient instructions): Contusion in Adults (ED) Is patient prescribed a controlled substance at d/c from ED?: No Referrals: Kimo Leigh MD [Primary Care Provider] - 1-2 days
--- NOTE | 2021-05-27 10:13 | CT ---
EXAMINATION TYPE: CT brain cspine wo con CT DLP: 1122.5 mGycm, Automated exposure control for dose reduction was used. DATE OF EXAM: 05/27/2021 9:58 AM COMPARISON: CT facial bones and day. CLINICAL INDICATION:Female, 80 years old with history of trauma, right orbital contusion TECHNIQUE: Brain: Multiple axial CT images of the brain were obtained without IV contrast. Cspine: Axial CT images from the skull base to the inferior aspect of T2 we obtained without intraven ous contrast. Coronal and sagittal reformatted images were also reviewed. FINDINGS: Brain: Extra-axial spaces: No abnormal extra-axial fluid collections. Ventricular system: Within normal limits Cerebral parenchyma: No acute intraparenchymal hemorrhage or mass effect. The holden-white junction is well differentiated. Cerebellum: Unremarkable. Mass effect: No evidence of midline shift. Intracranial vasculature: Atherosclerotic calcifications of the intracranial vessels. Soft tissues: Periorbital subcutaneous edema and hematoma. Calvarium/osseous structures: No depressed skull fracture. Paranasal sinuses and mastoid air cells: Clear. Visualized orbits: Orbital contents are intact. Cervical spine: Fracture: None. Osseous structures: Multilevel degenerative disc disease changes with endplate spurring and disc oste ophyte complex's. Ankylosis of the C2 and C3 lateral facets. Vertebral alignment: Within normal limits. Spinal canal/Neural Foramina: No evidence of significant spinal canal narrowing. Moderate C3 C4 neura l foraminal stenosis secondary to joint facet joint arthropathy. Neck soft tissues: Prevertebral soft tissues are within normal limits. Other: The airway is patent. The millimeter right upper lobe pulmonary nodule IMPRESSION: 1. No acute intracranial process. 2. Right periorbital subcutaneous edema/hematoma. 3. No evidence of cervical spine fracture. 4. Mild multilevel degenerative disc disease.
--- NOTE | 2021-05-27 10:15 | CT ---
EXAMINATION TYPE: CT facial bones wo con CT DLP: 797 mGycm, Automated exposure control for dose reduction was used. DATE OF EXAM: 05/27/2021 9:58 AM COMPARISON: Same day. CLINICAL INDICATION:Female, 80 years old with history of trauma, right orbital contusion TECHNIQUE: Multiple unenhanced axial CT images were obtained of the facial bones soft tissue and bone windows. Coronal, axial and sagittal reformatted images were also provided in soft tissue and bone windows and submitted for interpretation. FINDINGS: Right periorbital hematoma/edema. There is no evidence of fracture, subluxation, dislocation. The orbital contents are unremarkable. Th e temporal-mandibular joints appear symmetric. The visualized portion of the paranasal sinuses appear clear. IMPRESSION: Right periorbital hematoma/edema. No evidence of fracture.
--- NOTE | 2021-05-27 10:18 | XR ---
EXAMINATION TYPE: XR chest 2V DATE OF EXAM: 05/27/2021 9:59 AM COMPARISON:None CLINICAL INDICATION:Female, 80 years old with history of trauma; TECHNIQUE: Frontal and lateral views of the chest. FINDINGS: Lungs/Pleura: There is no evidence of pleural effusion, focal consolidation, or pneumothorax. Pulmonary vascularity: Unremarkable. Heart/mediastinum: Cardiomediastinal silhouette is unremarkable. Musculoskeletal: No acute osseous pathology. IMPRESSION: No acute cardiopulmonary disease/process.
[2021-05-27 10:34] LABS: Basophils % (A) 0 %; Eosinophils # (A) 0.2 k/uL (0-0.7); Eosinophils % (A) 2 %; HCT 42.8 % (34.0-46.0); HGB 13.8 gm/dL (11.4-16.0); Lymphocytes # (A) 1.3 k/uL (1.0-4.8); Lymphocytes % (A) 12 %; MCH 29.6 pg (25.0-35.0); MCHC 32.3 g/dL (31.0-37.0); MCV 91.6 fL (80.0-100.0); Mean Platelet Volume 7.9; Monocytes # (A) 0.7 k/uL (0-1.0); Monocytes % (A) 6 %; Neutrophils # (A) 8.3 k/uL (1.3-7.7); Neutrophils % (A) 77 %; Platelet Count 191 k/uL (150-450); RBC 4.68 m/uL (3.80-5.40); RDW 13.8 % (11.5-15.5); WBC 10.7 k/uL (3.8-10.6)
[2021-05-27 10:41] LABS: Appearance,Urine Clear (Clear); Bilirubin,Urine Negative (Negative); Blood,Urine Negative (Negative); Color,Urine Yellow; Glucose,Urine (UA) Negative (Negative); Ketones,Urine Negative (Negative); Leukocyte Esterase,Urine Moderate (Negative); Mucus,Urine Rare /hpf; Nitrite,Urine Negative (Negative); PH, Urine 5.5 (5.0-8.0); Protein,Urine Negative (Negative); RBC,Urine 1 /hpf (0-5); Specific Gravity,Urine 1.018 (1.001-1.035); Squamous Epithelial Cell,Urine 3 /hpf (0-4); Urobilinogen,Urine <2.0 mg/dL (<2.0); WBC,Urine 4 /hpf (0-5)
[2021-05-27 10:42] LABS: ALT 16 U/L (4-34); AST 26 U/L (14-36); African American GFR (CKD) 84 (>60 ml/min/1.73 sqM); Albumin 4.2 g/dL (3.5-5.0); Alcohol <10 mg/dL; Alkaline Phosphatase 69 U/L (38-126); Anion Gap 9 mmol/L; Blood Urea Nitrogen 15 mg/dL (7-17); Calcium 9.1 mg/dL (8.4-10.2); Carbon Dioxide 26 mmol/L (22-30); Chloride 104 mmol/L (98-107); Glucose 99 mg/dL (74-99); Magnesium 1.8 mg/dL (1.6-2.3); Non-African American GFR(CKD) 73 (>60 ml/min/1.73 sqM); Potassium 4.6 mmol/L (3.5-5.1); Sodium 139 mmol/L (137-145); Total Bilirubin 0.5 mg/dL (0.2-1.3)
[2021-05-27 10:46] LABS: INR 1.3 (<1.2); Partial Thromboplastin Time 30.1 sec (22.0-30.0); Prothrombin Time 13.4 sec (9.0-12.0)
[2021-05-27 13:27] VITALS: BP 158/68; PULSE 72; RESP 16; TEMP 98.2
== END 2021-05-27 13:27 | disposition home or self-care (01) ==
LOC: EC 09:21
DX: S05.11XA Contusion of eyeball and orbital tissues, right eye, initial encounter (principal); I10 Essential (primary) hypertension; Z87.891 Personal history of nicotine dependence; Z79.899 Other long term (current) drug therapy; X58.XXXA Exposure to other specified factors, initial encounter
CPT/HCPCS: 36415; 93005; 80053; 83735; 84484; 85025; 85610; 85730; 81001; 71046; 72125; 70486; 70450; 99285; 96360; 96361; G0480; 80320

== ENCOUNTER → 2021-06-09 | Outpatient (CLI) | payer MEDICARE ==
--- NOTE | 2021-06-12 09:45 | MM ---
Reason for exam: additional evaluation requested from prior study. Last mammogram was performed 4 years and 5 months ago. History: Patient is postmenopausal and has history of breast cancer at age 68. Malignant US left CoreBiopsy of the left breast, April 14, 2009. Lumpectomy of the left breast, 2008. Radiation therapy of the left breast, 2008. Saline implants in both breasts, 2002. Took estrogen for 15 years 7 months beginning at age 51. Took progesterone for 15 years 7 months beginning at age 51. Took antineoplastic for 5 years beginning at age 68. Physical Findings: Nurse Summary: 1cm nodule in the left breast at 2 o'clock (nurse db). MG 3D Diag Mammo Imp W/Cad GRETA Bilateral CC, MLO, and ID view(s) were taken. Prior study comparison: January 10, 2017, mammogram, performed at [facility]. July 27, 2015, bilateral MG 3d diag mammo imp w/cad GRETA. The breast tissue is heterogeneously dense. This may lower the sensitivity of mammography. There is no discrete abnormality including area of concern on left subareaolar. Bilateral breast prothesis. No significant new findings when compared with previous films. These results were verbally communicated with the patient and result sheet given to the patient on 06/09/21. ASSESSMENT: Benign, BI-RAD 2 RECOMMENDATION: Routine screening mammogram of both breasts in 1 year.
--- NOTE | 2021-06-12 09:47 | USB ---
Reason for exam: additional evaluation requested from abnormal screening. History: Patient is postmenopausal and has history of breast cancer at age 68. Malignant US left CoreBiopsy of the left breast, April 14, 2009. Lumpectomy of the left breast, 2008. Radiation therapy of the left breast, 2008. Saline implants in both breasts, 2002. Took estrogen for 15 years 7 months beginning at age 51. Took progesterone for 15 years 7 months beginning at age 51. Took antineoplastic for 5 years beginning at age 68. US Breast Limited LT Left limited breast ultrasound including focal area of concern, retroareolar and axilla demonstrates a 2.3 x 0.7 x 1.2cm lesion at 2 o'clock prior measurement 2.1 x 0.6 x 1.4cm, stable. 2 o'clock palpable scanned per Dr. Romero. These results were verbally communicated with the patient and result sheet given to the patient on 06/09/21. ASSESSMENT: Benign, BI-RAD 2 RECOMMENDATION: Routine screening mammogram of both breasts in 1 year.
== END | disposition home or self-care (01) ==
LOC: RADMAMWWP 15:03
PROVIDERS: ATTEND Family Medicine
DX: N64.59 Other signs and symptoms in breast (principal); R92.2 Inconclusive mammogram; Z85.3 Personal history of malignant neoplasm of breast; Z78.0 Asymptomatic menopausal state
CPT/HCPCS: 77066; 76642; G0279; 77062

== ENCOUNTER 2021-06-15 09:55 | Emergency (ER) | payer MEDICARE ==
[2021-06-15] MEDS ORDERED: diphenhydrAMINE 50 MG/ML 1 ML VIAL IVP STA (10:18)
[2021-06-15] MEDS ORDERED: methylPREDNISolone SOD SUCCI 125 MG/2 ML VIAL IV STA (10:18)
[2021-06-15] MEDS ORDERED: FAMOTIDINE 20 MG/2 ML VIAL IV STA (10:18)
--- NOTE | 2021-06-15 10:29 | ED ---
Allergic Reaction HPI - General Chief complaint: Allergic Reaction Stated complaint: Hives Time Seen by Provider: 06/15/21 10:06 Source: EMS Mode of arrival: EMS Limitations: no limitations - History of Present Illness Initial Comments: Patient is an 80-year-old female with a past medical history of breast cancer presents with an allergic reaction. patient reports she used a blanket she has never used before at her assisted living about 10 minutes ago when she broke out in a rash. this is never happened before. patient reports she is allergic to bee s. the rash is itchy, but not painful. patient reports she has not used any new products on her skin. she denies fever, chills, shortness of breath, chest pain , abdominal pain, and throat pain/swelling. - Related Data Home Medications Medication Instructions Recorded Confirmed Donepezil [Aricept] 10 mg PO HS 05/27/21 06/15/21 Imipramine [Tofranil] 25 mg PO BID 05/27/21 06/15/21 Memantine [Namenda] 5 mg PO BID 05/27/21 06/15/21 Sertraline [Zoloft] 200 mg PO DAILY 05/27/21 06/15/21 Dexamethasone 6 mg PO DAILY 06/15/21 06/15/21 Ipratropium [place] 0.06%Nasal 1 - 2 spray EA NOSTRIL DAILY 06/15/21 06/15/21 [Atrovent Nasal 0.06%] Previous Rx's Medication Instructions Recorded Dicyclomine [Bentyl] 20 mg PO QID PRN #8 tablet 06/15/21 Allergies Allergy/AdvReac Type Severity Reaction Status Date / Time bee venom protein (honey bee) Allergy Swelling Verified 06/15/21 10:04 Review of Systems ROS Statement: Those systems with pertinent positive or pertinent negative responses have been documented in the HPI. ROS Other: All systems not noted in ROS Statement are negative. Past Medical History Past Medical History: Cancer Additional Past Medical History / Comment(s): breast cancer, past history hypertension ,MACULAR DEGENERATION History of Any Multi-Drug Resistant Organisms: None Reported Past Surgical History: Appendectomy, Breast Surgery Additional Past Surgical History / Comment(s): COLONOSCOPY Past Anesthesia/Blood Transfusion Reactions: No Reported Reaction Past Psychological History: PTSD Smoking Status: Former smoker Past Alcohol Use History: Occasional Past Drug Use History: None Reported - Past Family History Mother Family Medical History: No Reported History General Exam Limitations: no limitations General appearance: alert, in no apparent distress Head exam: Present: atraumatic, normocephalic, normal inspection Eye exam: Present: normal appearance, PERRL, EOMI. Absent: scleral icterus, conjunctival injection, periorbital swelling ENT exam: Present: normal exam, mucous membranes moist Respiratory exam: Present: normal lung sounds bilaterally. Absent: respiratory distress, wheezes, rales, rhonchi, stridor Cardiovascular Exam: Present: regular rate, normal rhythm, normal heart sounds. Absent: systolic murmur, diastolic murmur, rubs, gallop, clicks GI/Abdominal exam: Present: soft, normal bowel sounds. Absent: distended, tenderness, guarding, rebound, rigid Neurological exam: Present: alert, oriented X3, CN II-XII intact Psychiatric exam: Present: normal affect, normal mood Skin exam: Present: warm, dry, intact, rash, erythema (diffuse urticaria on the neck, back, chest, abdomen, b/l upper extremeties, b/l hands, b/l lower extremities, buttocks, and b/l feet ), urticaria. Absent: normal color, cyanosis, diaphoretic, vesicles, petechiae, pallor Course Vital Signs 06/15/21 06/15/21 09:59 11:17 Temperature 97.8 F Pulse Rate 87 79 Respiratory 18 16 Rate Blood Pressure 126/73 132/73 O2 Sat by Pulse 97 96 Oximetry - Reevaluation(s) Reevaluation #1: patient is resting comfortably in bed. 06/15/21 10:47 Medical Decision Making - Medical Decision Making patient is an 80-year-old female presenting with an allergic reaction resulting in diffuse urticaria all over the body. patient looks well. she is hemodynamically stable. Rash has is almost resolved. Return parameters addressed. Patient will return to ED if rash worsens, or if there is lip/throat swelling, trouble breathing, or vomiting. Disposition Clinical Impression: Allergic reaction Disposition: HOME SELF-CARE Additional Instructions: Take medications as instructed. Return to the ED if there is worsening rash, lip/throat swelling, trouble breathing, or vomiting. Is patient prescribed a controlled substance at d/c from ED?: No Referrals: Kimo Leigh MD [Primary Care Provider] - 1-2 days Time of Disposition: 12:14
[2021-06-15 12:53] VITALS: BP 128/76; PULSE 83; RESP 18; TEMP 97.7
== END 2021-06-15 12:40 | disposition home or self-care (01) ==
LOC: EC 09:55
DX: T78.40XA Allergy, unspecified, initial encounter (principal); I10 Essential (primary) hypertension; Z91.030 Bee allergy status; Z87.891 Personal history of nicotine dependence
CPT/HCPCS: 99283; 96374; 96375; J1200; J2930

== ENCOUNTER 2021-06-16 07:26 | Emergency (ER) | payer MEDICARE ==
[2021-06-16 07:33] VITALS: BP 136/68; PULSE 101; RESP 20; TEMP 97.3
[2021-06-16] MEDS ORDERED: diphenhydrAMINE 50 MG/ML 1 ML VIAL IM STA (07:49)
--- NOTE | 2021-06-16 07:53 | ED ---
General Adult HPI - General Chief complaint: Skin/Abscess/Foreign Body Stated complaint: Hives/Revisit Time Seen by Provider: 06/16/21 07:38 Source: patient, RN notes reviewed Mode of arrival: ambulatory Limitations: no limitations - History of Present Illness Initial comments: 80-year-old female presents to the emergency room for a chief complaint of h tonia. Patient was seen here yesterday because she started to have hives. She was given Benadryl Solu-Medrol and Pepcid. She was discharged home with anything. Last night the hives started to keep up her neck and this concerned the staff of [facility]. They called her daughter to bring her back in today. Patient is a have any swelling of her lips tongue or throat or difficulty breathing or swallowing. They did Benadryl throughout the night, not sure when the last time she got Benadryl was. They will call and asked.Patient has no other complaints at this time including shortness of breath, chest pain, abdominal pain, nausea or vomiting, headache, or visual changes. - Related Data Home Medications Medication Instructions Recorded Confirmed Donepezil [Aricept] 10 mg PO HS 05/27/21 06/15/21 Imipramine [Tofranil] 25 mg PO BID 05/27/21 06/15/21 Memantine [Namenda] 5 mg PO BID 05/27/21 06/15/21 Sertraline [Zoloft] 200 mg PO DAILY 05/27/21 06/15/21 Dexamethasone 6 mg PO DAILY 06/15/21 06/15/21 Ipratropium [place] 0.06%Nasal 1 - 2 spray EA NOSTRIL DAILY 06/15/21 06/15/21 [Atrovent Nasal 0.06%] Previous Rx's Medication Instructions Recorded Dicyclomine [Bentyl] 20 mg PO QID PRN #8 tablet 06/15/21 Famotidine [Pepcid] 20 mg PO BID #30 tablet 06/16/21 predniSONE 50 mg PO DAILY #5 tablet 06/16/21 Allergies Allergy/AdvReac Type Severity Reaction Status Date / Time bee venom protein (honey bee) Allergy Swelling Verified 06/16/21 07:33 Review of Systems ROS Statement: Those systems with pertinent positive or pertinent negative responses have been documented in the HPI. ROS Other: All systems not noted in ROS Statement are negative. Past Medical History Past Medical History: Cancer Additional Past Medical History / Comment(s): breast cancer, past history hypertension ,MACULAR DEGENERATION History of Any Multi-Drug Resistant Organisms: None Reported Past Surgical History: Appendectomy, Breast Surgery Additional Past Surgical History / Comment(s): COLONOSCOPY Past Anesthesia/Blood Transfusion Reactions: No Reported Reaction Past Psychological History: PTSD Smoking Status: Former smoker Past Alcohol Use History: Occasional Past Drug Use History: None Reported - Past Family History Mother Family Medical History: No Reported History General Exam Limitations: no limitations General appearance: alert, in no apparent distress Head exam: Present: atraumatic Eye exam: Present: normal appearance, PERRL, EOMI. Absent: scleral icterus, conjunctival injection ENT exam: Present: normal exam, mucous membranes moist Neck exam: Present: normal inspection, full ROM. Absent: tenderness Respiratory exam: Present: normal lung sounds bilaterally. Absent: respiratory distress, wheezes Cardiovascular Exam: Present: regular rate, normal rhythm, normal heart sounds GI/Abdominal exam: Present: soft, normal bowel sounds. Absent: distended, tenderness Neurological exam: Present: alert Course Vital Signs 06/16/21 07:30 Temperature 97.3 F L Pulse Rate 101 H Respiratory 20 Rate Blood Pressure 136/68 O2 Sat by Pulse 97 Oximetry Medical Decision Making - Medical Decision Making She will be prescribed prednisone and Pepcid for home. She will continue Benadryl every 6 hours. She will follow-up with her doctor. She will return here for any worsening symptoms. Disposition Clinical Impression: Urticaria Disposition: HOME SELF-CARE Condition: Good Instructions (If sedation given, give patient instructions): Urticaria (ED) Additional Instructions: Please take Benadryl every 6 hours. Take prednisone and Pepcid as directed. Follow-up with primary care. Return for any worsening symptoms. Prescriptions: Famotidine [Pepcid] 20 mg PO BID #30 tablet predniSONE 50 mg PO DAILY #5 tablet Is patient prescribed a controlled substance at d/c from ED?: No Referrals: Kimo Leigh MD [Primary Care Provider] - 1-2 days Time of Disposition: 07:52
== END 2021-06-16 08:18 | disposition home or self-care (01) ==
LOC: EC 07:26
DX: L50.9 Urticaria, unspecified (principal); F43.12 Post-traumatic stress disorder, chronic; Z85.3 Personal history of malignant neoplasm of breast; Z90.49 Acquired absence of other specified parts of digestive tract; Z87.891 Personal history of nicotine dependence
CPT/HCPCS: 99282; 96372; J1200

== ENCOUNTER 2021-06-16 21:50 | Emergency (ER) | payer MEDICARE ==
[2021-06-16] MEDS ORDERED: SODIUM CHLORIDE 0.9% 500 ML 500 ML IV STA (22:11)
[2021-06-16] MEDS ORDERED: diphenhydrAMINE 50 MG/ML 1 ML VIAL IVP STA (22:11)
[2021-06-16] MEDS ORDERED: FAMOTIDINE 20 MG/2 ML VIAL IV STA (22:12)
[2021-06-16] MEDS ORDERED: methylPREDNISolone SOD SUCCI 125 MG/2 ML VIAL IV STA (22:12)
[2021-06-16] MEDS ORDERED: ACETAMINOPHEN TAB 500 MG TAB PO STA (22:13)
--- NOTE | 2021-06-16 22:18 | ED ---
Skin/Abscess/FB HPI - General Chief complaint: Skin/Abscess/Foreign Body Stated complaint: Rash head to toe, SOB Time Seen by Provider: 06/16/21 22:02 Source: patient, RN notes reviewed Mode of arrival: ambulatory Limitations: no limitations - History of Present Illness Initial comments: This is a pleasant 80-year-old female with a history of breast cancer, hypertension, macular degeneration, and dementia. She presents to the emergency room today for reevaluation of urticaria. Patient was seen twice over the past 48 hours for similar symptoms. Patient was given corticosteroids on the initial visit. She was given nothing for home. Patient was seen here yesterday and received corticosteroids again as well as a prescription for prednisone and Pepcid. Note that the patient has not been taking any additional antihistamines. Patient's main complaint is itching. Patient has an urticarial rash from head to toe. Triage note says shortness of breath however the patient is denying any chest pain or shortness of breath to me. Patient complaining of increased anxiety secondary to the itching. No known antigens. Patient is on no new medications. No new contacts. No new foods. No new detergents. No known exposures. No headache, no fever or chills, no changes in vision or hearing, no sore throat or difficulty with speech, no neck pain, no chest pain or shortness of breath, no abdominal pain, no nausea or vomiting, no changes in urination or bowel movements, no numbness or tingling, no extremity pain, MD complaint: rash - Related Data Home Medications Medication Instructions Recorded Confirmed Donepezil [Aricept] 10 mg PO HS 05/27/21 06/15/21 Imipramine [Tofranil] 25 mg PO BID 05/27/21 06/15/21 Memantine [Namenda] 5 mg PO BID 05/27/21 06/15/21 Sertraline [Zoloft] 200 mg PO DAILY 05/27/21 06/15/21 Dexamethasone 6 mg PO DAILY 06/15/21 06/15/21 Ipratropium [place] 0.06%Nasal 1 - 2 spray EA NOSTRIL DAILY 06/15/21 06/15/21 [Atrovent Nasal 0.06%] Previous Rx's Medication Instructions Recorded Dicyclomine [Bentyl] 20 mg PO QID PRN #8 tablet 06/15/21 Famotidine [Pepcid] 20 mg PO BID #30 tablet 06/16/21 predniSONE 50 mg PO DAILY #5 tablet 06/16/21 Allergies Allergy/AdvReac Type Severity Reaction Status Date / Time bee venom protein (honey bee) Allergy Swelling Verified 06/16/21 21:52 Review of Systems ROS Statement: Those systems with pertinent positive or pertinent negative responses have been documented in the HPI. ROS Other: All systems not noted in ROS Statement are negative. Past Medical History Past Medical History: Cancer Additional Past Medical History / Comment(s): breast cancer, past history hypertension ,MACULAR DEGENERATION History of Any Multi-Drug Resistant Organisms: None Reported Past Surgical History: Appendectomy, Breast Surgery Additional Past Surgical History / Comment(s): COLONOSCOPY Past Anesthesia/Blood Transfusion Reactions: No Reported Reaction Past Psychological History: PTSD Smoking Status: Former smoker Past Alcohol Use History: Occasional Past Drug Use History: None Reported - Past Family History Mother Family Medical History: No Reported History General Exam - General Exam Comments Initial Comments: 80-year-old female in moderate distress. Patient does not appear to be ill or toxic. Limitations: no limitations General appearance: alert, in distress Head exam: Present: atraumatic, normocephalic, normal inspection Eye exam: Present: normal appearance, PERRL, EOMI. Absent: scleral icterus, conjunctival injection, nystagmus, periorbital swelling ENT exam: Present: normal exam, normal oropharynx, mucous membranes moist, other (No mucous membrane involvement). Absent: mucous membranes dry Neck exam: Present: normal inspection. Absent: tenderness, meningismus, lymphadenopathy Respiratory exam: Present: normal lung sounds bilaterally. Absent: respiratory distress, wheezes, rales, rhonchi, stridor Cardiovascular Exam: Present: regular rate, normal rhythm, normal heart sounds. Absent: systolic murmur, diastolic murmur, rubs, gallop, clicks GI/Abdominal exam: Present: soft, normal bowel sounds. Absent: distended, tenderness, guarding, rebound, rigid Extremities exam: Present: normal inspection, full ROM, normal capillary refill. Absent: tenderness, pedal edema, joint swelling, calf tenderness Back exam: Present: normal inspection Neurological exam: Present: alert, oriented X3, CN II-XII intact Psychiatric exam: Present: normal affect, normal mood Skin exam: Present: warm, dry, intact, rash, urticaria, other (Widespread urticaria noted, this does spare the face, palms, and soles. No mucous membrane involvement) Course Vital Signs 06/16/21 21:52 Temperature 97.9 F Pulse Rate 91 Respiratory 20 Rate Blood Pressure 138/60 O2 Sat by Pulse 94 L Oximetry - Reevaluation(s) Reevaluation #1: 06/16/21 23:58 Medical record is reviewed Symptoms are improved here in the emergency department Patient is informed of results and questions answered Patient in no distress Medical Decision Making - Medical Decision Making Patient's third visit for the same complaint over the past 48-72 hours. We'll treat the patient with a dose of same and draw, diphenhydramine, and famotidine. Laboratory investigation, hydration, acetaminophen, plan for discharge for idiopathic urticaria. Patient being seen for the third time for idiopathic urticaria. No evidence of infectious process. Does not appear to be consistent with erythema multiforme. No vesicles. No pustules. Rash blanches. Vision no distress otherwise. Patient was not taking an antihistamine in addition to the famotidine. We'll have her start taking Benadryl. Patient was much improved at discharge. Rele ased with family member. Vision stable. Agrees with treatment plan. All questions answered. Patient was told to return to the ER for any signs or symptoms worsen. Told to return immediately if any other problems arise. All questions answered. Treatment plan discussed. Patient in agreement - Lab Data Result diagrams: 06/16/21 22:32 06/16/21 22:32 Lab Results 06/16/21 06/16/21 Range/Units 22:32 22:32 WBC 12.9 H (3.8-10.6) k/uL RBC 4.39 (3.80-5.40) m/uL Hgb 13.3 (11.4-16.0) gm/dL Hct 39.7 (34.0-46.0) % MCV 90.4 (80.0-100.0) fL MCH 30.3 (25.0-35.0) pg MCHC 33.5 (31.0-37.0) g/dL RDW 13.9 (11.5-15.5) % Plt Count 213 (150-450) k/uL MPV 8.4 Neutrophils % 85 % Lymphocytes % 9 % Monocytes % 5 % Eosinophils % 1 % Basophils % 0 % Neutrophils # 10.9 H (1.3-7.7) k/uL Lymphocytes # 1.2 (1.0-4.8) k/uL Monocytes # 0.7 (0-1.0) k/uL Eosinophils # 0.1 (0-0.7) k/uL Basophils # 0.0 (0-0.2) k/uL Sodium 135 L (137-145) mmol/L Potassium 4.5 (3.5-5.1) mmol/L Chloride 105 (98-107) mmol/L Carbon Dioxide 23 (22-30) mmol/L Anion Gap 7 mmol/L BUN 29 H (7-17) mg/dL Creatinine 1.14 H (0.52-1.04) mg/dL Est GFR (CKD-EPI)AfAm 53 (>60 ml/min/1.73 sqM) Est GFR (CKD-EPI)NonAf 46 (>60 ml/min/1.73 sqM) Glucose 128 H (74-99) mg/dL Calcium 9.1 (8.4-10.2) mg/dL Total Bilirubin 0.7 (0.2-1.3) mg/dL AST 33 (14-36) U/L ALT 19 (4-34) U/L Alkaline Phosphatase 70 (38-126) U/L Total Protein 6.7 (6.3-8.2) g/dL Albumin 4.0 (3.5-5.0) g/dL Disposition Clinical Impression: Urticaria, idiopathic Disposition: HOME SELF-CARE Condition: Stable Instructions (If sedation given, give patient instructions): Urticaria (ED) Additional Instructions: Continue the prednisone, famotidine, and in the Benadryl 50 mg every 6 hours as discussed. Follow-up with your regular physician. Follow-up with your regular physician as directed. Return to the ER immediately if any symptoms worsen, new symptoms arise, or any other problems develop. also try cool compresses, Aveeno oatmeal baths Is patient prescribed a controlled substance at d/c from ED?: No Referrals: Kimo Leigh MD [Primary Care Provider] - 06/19/21 Time of Disposition: 23:59
[2021-06-16 22:42] LABS: Basophils % (A) 0 %; Eosinophils # (A) 0.1 k/uL (0-0.7); Eosinophils % (A) 1 %; HCT 39.7 % (34.0-46.0); HGB 13.3 gm/dL (11.4-16.0); Lymphocytes # (A) 1.2 k/uL (1.0-4.8); Lymphocytes % (A) 9 %; MCH 30.3 pg (25.0-35.0); MCHC 33.5 g/dL (31.0-37.0); MCV 90.4 fL (80.0-100.0); Mean Platelet Volume 8.4; Monocytes # (A) 0.7 k/uL (0-1.0); Monocytes % (A) 5 %; Neutrophils # (A) 10.9 k/uL (1.3-7.7); Neutrophils % (A) 85 %; Platelet Count 213 k/uL (150-450); RBC 4.39 m/uL (3.80-5.40); RDW 13.9 % (11.5-15.5); WBC 12.9 k/uL (3.8-10.6)
[2021-06-16 22:55] LABS: Calcium 9.1 mg/dL (8.4-10.2); Potassium 4.5 mmol/L (3.5-5.1); Total Bilirubin 0.7 mg/dL (0.2-1.3); Total Protein 6.7 g/dL (6.3-8.2)
[2021-06-17 00:26] VITALS: BP 170/92; PULSE 81; RESP 18; TEMP 98.4
== END 2021-06-17 00:25 | disposition home or self-care (01) ==
LOC: EC 21:50
DX: L50.1 Idiopathic urticaria (principal); F43.12 Post-traumatic stress disorder, chronic; Z85.3 Personal history of malignant neoplasm of breast; Z90.49 Acquired absence of other specified parts of digestive tract; Z87.891 Personal history of nicotine dependence
CPT/HCPCS: 99283; 96374; 96375 ×2; 36415; 80053; 85025; J1200; J2930

== ENCOUNTER → 2022-06-11 | Outpatient (CLI) | payer MEDICARE ==
--- NOTE | 2022-06-11 11:43 | MM ---
Reason for Exam: Clinical finding. Last screening mammogram was performed 12 month(s) ago. Patient History: Menarche at age 11. First Full-Term at age 16. Postmenopausal. Breast cancer, left, age 68. Estrogen, starting at age 51 for 15 years, 7 months. Progesterone, starting at age 51 for 15 years, 7 months. 2008, Lumpectomy on the Left side. 04/14/2009, Malignant Core Biopsy on the left side. 2008, Radiation Therapy on the left side. 2002, Bilateral Implants. Prior Study Comparison: 06/09/1997 Bilateral Diagnostic Mammogram, [facility]. 09/05/1998 Bilateral Diagnostic Mammogram, [facility]. 10/26/1999 Bilateral Diagnostic Mammogram, [facility]. 12/04/2000 Bilateral Diagnostic Mammogram, [facility]. 01/27/2002 Bilateral Diagnostic Mammogram, [facility]. 04/07/2003 Bilateral Diagnostic Mammogram, [facility]. 08/24/2004 Bilateral Diagnostic Mammogram, [facility]. 08/27/2005 Bilateral Diagnostic Mammogram, [facility]. 10/14/2006 Bilateral Diagnostic Mammogram, [facility]. 02/12/2008 Bilateral Diagnostic Mammogram, [facility]. 04/13/2009 Bilateral Diagnostic Mammogram, [facility]. 04/13/2009 Left Diagnostic Ultrasound, [facility]. 05/05/2013 Screening Mammogram, [facility] [place]. 05/05/2013 Screening Mammogram, [facility] [place]. 09/13/2014 Screening Mammogram, [facility] [place]. 09/13/2014 Screening Mammogram, [facility] [place]. 07/27/2015 Bilateral Diagnostic Mammogram, [facility]. 09/02/2015 Left Diagnostic Ultrasound, [facility]. 09/20/2015 Bilateral Diagnostic Breast MRI, [facility]. 01/10/2017 Screening Mammogram, [facility] [place]. 04/17/2017 Left Diagnostic Ultrasound, [facility]. 06/09/2021 Bilateral Diagnostic Mammogram, [facility]. 06/09/2021 Left Diagnostic Ultrasound, [facility]. Tissue Density: The breast tissue is heterogeneously dense. This may lower the sensitivity of mammography. Findings: Bilateral breast prosthesis redemonstrated. Benign round appearing calcifications within the left breast. No new suspicious mass within either breast. Stable post lumpectomy changes of the left breast. Overall Assessment: Benign, BI-RAD 2 Management: Screening Mammogram of both breasts in 1 year. A clinical breast exam by your physician is recommended on an annual basis and results should be correlated with mammographic findings. This exam should not preclude additional follow-up of suspicious palpable abnormalities. Results were given to the patient verbally at the time of exam. Electronically signed and approved by: Fredy Lord D.O.
== END | disposition home or self-care (01) ==
LOC: RADMAMWWP 11:03
PROVIDERS: ATTEND Family Medicine
DX: N64.4 Mastodynia (principal); Z85.3 Personal history of malignant neoplasm of breast; Z98.82 Breast implant status; Z78.0 Asymptomatic menopausal state
CPT/HCPCS: 77066; G0279; 77062

== ENCOUNTER → 2022-08-22 | Outpatient (CLI) | payer MEDICARE ==
--- NOTE | 2022-08-22 14:29 | CT ---
EXAMINATION TYPE: CT lumbar spine wo con DATE OF EXAM: 08/22/2022 1:44 PM COMPARISON: None HISTORY: Low back pain CT DLP: 1009 mGycm Automated exposure control for dose reduction was used. Unenhanced CT of the lumbar spine was performed. Bone and soft tissue window settings are submitted as well as coronal and sagittal reconstructions. L1-L2: Mild hypertrophic change of the facets. There is mild left lateral disc bulging with mild encr oachment of the left neural foramina. No canal stenosis. L2-L3: Moderate degenerative disc disease with circumferential disc bulging greater laterally to left . There is mild effacement of the thecal sac with hypertrophy of the facets and ligamentum flavum. Ad vanced facet arthropathy. Mild bilateral foraminal encroachment greater on the left and mild central stenosis. L3-L4: Moderate to severe degenerative disc disease with broad-based disc protrusion. Advanced facet arthropathy with hypertrophic changes and ligamentum flavum and facets. There is some mild to moderat e bilateral foraminal encroachment greater on the right and canal stenosis. There is a 2 mm retrolist hesis of L3 relative to L4. L4-L5: Moderate degenerative disc disease with broad-based disc protrusion. Advanced facet arthropath y with ligamentum flavum hypertrophy. There is severe canal stenosis and bilateral foraminal encroach ment. L5-S1: Severe degenerative disc disease with vacuum disc. There is marked facet arthropathy. There is no canal stenosis. Neural foramina are patent with mild encroachment bilaterally. The uterus is somewhat prominent in size. There is mild atherosclerotic change of the aorta. IMPRESSION: 1. Multilevel moderate to severe degenerative disc disease with multilevel canal stenosis most marked at L4-L5. 2. Multilevel advanced facet arthropathy with multiple level foraminal encroachment. 3. Prominent size to the upper margin of the uterus only partially included in [id number]. This co uld be correlated with ultrasound.
== END | disposition home or self-care (01) ==
LOC: RADCTMAIN 13:23
PROVIDERS: ATTEND Family Medicine
DX: M51.36 Other intervertebral disc degeneration, lumbar region (principal); M48.062 Spinal stenosis, lumbar region with neurogenic claudication; M99.73 Connective tissue and disc stenosis of intervertebral foramina of lumbar region
CPT/HCPCS: 72131

== ENCOUNTER → 2022-10-17 | Outpatient (CLI) | payer MEDICARE ==
[2022-10-17 14:12] VITALS: BP 114/72; PULSE 97; RESP 18
--- NOTE | 2022-10-17 14:32 | P.PAINPG ---
PQRS Measure Charge Sheet Comment: HISTORY OF PRESENT ILLNESS: 81 yr old female w son, daughter at side as a referral from Dr Leigh presents today w severe and chronic LBP secondary to DDD, spondylosis and facet arthropathy without myelopathy for evaluation. Pt states pain level is provoked at 7/10 in intensity, constant, localized in the lower lumbar spine, achy, dull in character w shooting pain towards the hips and buttocks. Pain is provoked by walking, over activity. Pain is alleviated by PT x 2 sessions which she just started last week, heat, topical, sitting, repositioning and rest. PMH: Breast CA, HTN, Macular Degeneration, PTSD PSH: Appendectomy, Breast Surgery, Colonoscopy SH: Former tobacco user, Occasional ETOH use, No illicit drug use FH: Mo- No Reported History All: See list Meds: See list REVIEW OF ORGAN SYSTEMS: CONSTITUTIONAL: No fevers or chills. No recent weight loss. NEUROLOGICAL: + numbness and tingling along the distal extremities. No seizure disorders or headaches. MUSCULOSKELETAL: + pain PSYCHIATRIC: Denies current depression or suicidal thoughts. Physical Examinations : Constitutional : Cooperative , not in acute distress . Neurologic : Cranial nerve II to XII intact. No focal neurological deficits. Psychiatric : alert & oriented x 3. Matching mood & appropriate affect. Judgment & insight intact. Musculoskeletal : Cervical Spine Motor strength in the deltoid and biceps: Normal right side. Normal Left side Motor strength biceps and the wrist extensors: Normal right side . Normal left side Motor strength in the triceps muscle: Normal right side. Normal left side Deep tendon reflexes: Normal at the biceps. Normal at Brachioradialis. Normal at triceps Vertebral body tenderness to deep palpation over Cervical facet loading test: positive bilaterally Spurling test: positive bilaterally Neck distraction test: positive bilaterally Allison sign: positive bilaterally Lumbar spine Motor strength lower extremities ,thigh and legs 5/5 Right side , 5/5 Left side Deep tendon reflexes : Normal Knee Jerk. Normal Ankle Jerk Vertebral body tenderness over L5 + King Test positive on L5 Lumbar facet Loading Test: positive Right / positive Left Range of motion of the lumbar spine Flexion 30 degrees, extension 10 degrees Straight Leg Raise test: Left/ Right positive at degree Chase test: positive right / positive left. Severe tenderness over the Sacroiliac joint on the Right / Left sides Gaenslen test: positive bilaterally Seated flexion test: positive bilaterally. Sacral spine : Severe tenderness over the Sacroiliac joint: right side / left side Range of motion: Flexion of the lumbar spine <60 degrees Range of motion: Extension of the monica mbar spine <20 degrees Gaenslen's Test positive Faizan's Test positive Chase test: positive right side / left side Thigh Thrust Test Sacral Thrust Test Imaging: CT noncontrast of the lumbar spine from 08/22/22 reviewed Assessment/ Plan : Lumbar spondylosis Recommendation of WESTLEY L5-S1. May need a series of injections for optimal pain relief. Risks, benefits of procedure discussed and patient verbalized understanding. Admits to aspirin or anti- coagulant use or medical history of diabetes. Protocol for discontinuation/ continuation of medications sherie procedure discussed. Minimal anesthesia provided, if clinically indicated, consisting of Versed and Fentanyl. All questions answered. I have spent greater than 30 minutes on patient care today. Dr Obregon was available by phone for the evaluation of this patient. The time was used to review the medical records including relevant urine studies and Prescription history (MAPs), review of the available imaging, evaluation and examination of the patient, coordination of care with the medical staff and if applicable referring physicians, as well as creation of the medical record PQRS Narrative: Smoking Status Former smoker Home Medications: Ambulatory Orders Donepezil [Aricept] 10 mg PO HS 05/27/21 Imipramine [Tofranil] 25 mg PO BID 05/27/21 Memantine [Namenda] 5 mg PO BID 05/27/21 Sertraline [Zoloft] 200 mg PO DAILY 05/27/21 Dicyclomine [Bentyl] 20 mg PO QID PRN #8 tablet 06/15/21 Ipratropium [place] 0.06%Nasal [Atrovent Nasal 0.06%] 1 - 2 spray EA NOSTRIL DAILY 06/15/21 dexAMETHasone [Dexamethasone] 6 mg PO DAILY 06/15/21 Famotidine [Pepcid] 20 mg PO BID #30 tablet 06/16/21 predniSONE 50 mg PO DAILY #5 tablet 06/16/21 Controlled Substance Measures - Controlled Substance Measures Is patient prescribed a controlled substance at discharge?: No
== END ==
LOC: PNWHC3 12:40
PROVIDERS: ATTEND Specialist
DX: M51.16 Intervertebral disc disorders with radiculopathy, lumbar region (principal); M47.26 Other spondylosis with radiculopathy, lumbar region; Z85.3 Personal history of malignant neoplasm of breast; I10 Essential (primary) hypertension; F43.10 Post-traumatic stress disorder, unspecified; Z87.891 Personal history of nicotine dependence; Z91.030 Bee allergy status
CPT/HCPCS: 99211

== ENCOUNTER → 2022-12-05 | Outpatient (CLI) | payer MEDICARE ==
[2022-12-06 00:54] LABS: T4, Free (Free Thyroxine) 1.22 ng/dL (0.80-1.80)
== END | disposition home or self-care (01) ==
LOC: LABWHC1 13:44
PROVIDERS: ATTEND Psychiatry & Neurology Neurology
DX: R41.3 Other amnesia (principal); F03.90 Unspecified dementia, unspecified severity, without behavioral disturbance, psychotic disturbance, mood disturbance, and anxiety
CPT/HCPCS: 36415; 82306; 82607; 84207; 84439; 84443

== ENCOUNTER → 2022-12-20 | Outpatient (CLI) | payer MEDICARE ==
--- NOTE | 2022-12-21 08:28 | MR ---
EXAMINATION TYPE: MR brain wo con DATE OF EXAM: 12/20/2022 3:09 PM COMPARISON: NONE HISTORY: Alzheimer's FINDINGS: The ventricles, basal cisterns and sulci overlying the cerebral convexities are moderately enlarged. There is evidence of mild to moderate periventricular white matter ischemic demyelination. Remote deep white matter insults are also noted. No acute edema is seen on diffusion weighted imaging. There is no evidence for midline shift or mass effect. Acute intracranial hemorrhage or extra-axial collection is not evident. The paranasal sinuses and mastoid air cells are well-aerated. IMPRESSION: Age-related atrophic and chronic small vessel ischemic change. No acute intracranial process at this time.
== END | disposition home or self-care (01) ==
LOC: RADMRIMAIN 14:26
PROVIDERS: ATTEND Psychiatry & Neurology Neurology
DX: I67.82 Cerebral ischemia (principal); G30.1 Alzheimer's disease with late onset; G31.9 Degenerative disease of nervous system, unspecified; F02.80 Dementia in other diseases classified elsewhere, unspecified severity, without behavioral disturbance, psychotic disturbance, mood disturbance, and anxiety
CPT/HCPCS: 70551

== ENCOUNTER → 2023-03-21 | Outpatient (CLI) | payer MEDICARE ==
--- NOTE | 2023-04-11 13:49 | MM ---
Reason for Exam: Clinical finding. Last screening mammogram was performed 9 month(s) ago. Indicated Problems: Pain of the left side. Patient History: Menarche at age 11. First Full-Term at age 16. Postmenopausal. Breast cancer, left, age 68. Estrogen, starting at age 51 for 15 years, 7 months. Progesterone, starting at age 51 for 15 years, 7 months. 2008, Lumpectomy on the Left side. 04/14/2009, Malignant Core Biopsy on the left side. 2008, Radiation Therapy on the left side. 2002, Bilateral Implants. Tissue Density: There are scattered fibroglandular densities. Findings: Analyzed By CAD. Bilateral breast implants with calcifications along the capsule on the left. The breasts appear symmetric in size. No new suspicious masses, calcifications or distortions. Overall Assessment: Benign, BI-RAD 2 Management: Screening Mammogram of both breasts in 1 year. Results were given to the patient verbally at the time of exam. Patient should continue monthly self-breast exams. A clinical breast exam by your physician is recommended on an annual basis. This exam should not preclude additional follow-up of suspicious palpable abnormalities. Note on Babs scores and lifetime risk: 1. A Babs score greater than 3% is considered moderate risk. If this is the case, consider specialist referral to assess eligibility for a risk reducing agent. 2. If overall lifetime risk for the development of breast cancer is 20% or higher, the patient may qualify for future screening with alternating mammogram and breast MRI. Electronically signed and approved by: Frank Gilbert DO
== END | disposition home or self-care (01) ==
LOC: RADMAMWWP 09:49
PROVIDERS: ATTEND Family Medicine
DX: N64.4 Mastodynia (principal); N63.0 Unspecified lump in unspecified breast; R92.323 Mammographic fibroglandular density, bilateral breasts; Z85.3 Personal history of malignant neoplasm of breast; Z98.82 Breast implant status; Z78.0 Asymptomatic menopausal state
CPT/HCPCS: 77066; G0279; 77062

== ENCOUNTER 2024-10-06 19:25 | Emergency (ER) | payer MEDICARE ==
--- NOTE | 2024-10-06 19:29 | ED ---
Chest Pain HPI - General Stated Complaint: Chest Pain Time Seen by Provider: 10/06/24 19:28 Source: RN notes reviewed, old records reviewed Mode of arrival: ambulatory Limitations: no limitations - History of Present Illness Initial Comments: This is an 83-year-old female to the ER for evaluation of chest pain today. Patient has severe dementia unable to give history unsure of where her chest pain report came from. Patient herself in the ER is a little bit combative, confused but with family at bedside appears to be at underlying normal mental state, patient does not have ability to make complaints and does not communicate MD Complaint: chest pain -: unknown Pain Radiation: none Quality: other Improves With: other Worsens With: other Context: other Other Symptoms: other Treatments Prior to Arrival: none - Related Data Home Medications Medication Instructions Recorded Confirmed Donepezil [Aricept] 10 mg PO HS 05/27/21 10/17/22 Imipramine [Tofranil] 25 mg PO BID 05/27/21 10/17/22 Memantine [Namenda] 5 mg PO BID 05/27/21 10/17/22 Sertraline [Zoloft] 200 mg PO DAILY 05/27/21 10/17/22 Ipratropium [place] 0.06%Nasal 1 - 2 spray EA NOSTRIL DAILY 06/15/21 10/17/22 [Atrovent Nasal 0.06%] dexAMETHasone [Dexamethasone] 6 mg PO DAILY 06/15/21 10/17/22 Previous Rx's Medication Instructions Recorded Dicyclomine [Bentyl] 20 mg PO QID PRN #8 tablet 06/15/21 Famotidine [Pepcid] 20 mg PO BID #30 tablet 06/16/21 predniSONE 50 mg PO DAILY #5 tablet 06/16/21 Allergies Allergy/AdvReac Type Severity Reaction Status Date / Time bee venom protein (honey bee) Allergy Swelling Verified 10/06/24 19:37 Review of Systems ROS Statement: Those systems with pertinent positive or pertinent negative responses have been documented in the HPI. ROS Other: All systems not noted in ROS Statement are negative. EKG Findings - EKG Comments: EKG Findings:: EKG is sinus bradycardia 50 RI 246 QRS 86 QTc 419 - EKG Results: EKG: interpreted by JORDAN Past Medical History Past Medical History: Cancer Additional Past Medical History / Comment(s): breast cancer, past history hypertension ,MACULAR DEGENERATION History of Any Multi-Drug Resistant Organisms: None Reported Past Surgical History: Appendectomy, Breast Surgery Additional Past Surgical History / Comment(s): COLONOSCOPY Past Anesthesia/Blood Transfusion Reactions: No Reported Reaction Smoking Status: Former smoker - Past Family History Mother Family Medical History: No Reported History General Exam General appearance: alert, in no apparent distress Head exam: Present: atraumatic, normocephalic, normal inspection Eye exam: Present: normal appearance, PERRL, EOMI. Absent: scleral icterus, conjunctival injection, periorbital swelling ENT exam: Present: normal exam, mucous membranes moist Neck exam: Present: normal inspection. Absent: tenderness, meningismus, lymphadenopathy Respiratory exam: Present: normal lung sounds bilaterally. Absent: respiratory distress, wheezes, rales, rhonchi, stridor Cardiovascular Exam: Present: regular rate, normal rhythm, normal heart sounds. Absent: systolic murmur, diastolic murmur, rubs, gallop, clicks GI/Abdominal exam: Present: soft, normal bowel sounds. Absent: distended, tenderness, guarding, rebound, rigid Extremities exam: Present: normal inspection, full ROM, normal capillary refill. Absent: tenderness, pedal edema, joint swelling, calf tenderness Back exam: Present: normal inspection Neurological exam: Present: alert, oriented X3, CN II-XII intact Psychiatric exam: Present: normal affect, normal mood Skin exam: Present: warm, dry, intact, normal color. 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 sent in by a medical professional or institution (, PA, FUNDRAISING SALE REPRESENTATIVE, urgent care, hospital, or [facility]...) When possible be specific @ -no Did you speak to anyone other than the patient for history (EMS, parent, family, police, friend...)? What history was obtained from this source @ -no Did you review nursing and triage notes (agree or disagree)? Why? @ -agree Are old charts reviewed (outside hosp., previous admission, EMS record, old EKG, old radiological studies, urgent care reports/EKG's, [facility] records)? Report findings @ -yes Differential Diagnosis (chest pain, altered mental status, abdominal pain women, abdominal pain men, vaginal bleeding, weakness, fever, dyspnea, syncope, headache, dizziness, GI bleed, back pain, seizure, CVA, palpatations, mental health, musculoskeletal)? @ -prior EKG interpreted by me (3pts min.). @ -yes X-rays interpreted by me (1pt min.). @ -no CT interpreted by me (1pt min.). @ -no U/S interpreted by me (1pt. min.). @ -no What testing was considered but not performed or refused? (CT, X-rays, U/S, labs)? Why? @ -none What meds were considered but not given or refused? Why? @ -none Did you discuss the management of the patient with other professionals (professionals i.e. , PA, FUNDRAISING SALE REPRESENTATIVE, lab, RT, psych nurse, social media strategist, commercial loan analyst, teacher, business development officer, showcase trimmer)? Give summary @ -no Was smoking cessation discussed for >3mins.? @ -no Was critical care preformed (if so, how long)? @ -no Were there social determinants of health that impacted care today? How? (Homelessness, low income, unemployed, alcoholism, drug addiction, transportation, low edu. Level, literacy, decrease access to med. care, penitentiary, rehab)? @ -none Was there de-escalation of care discussed even if they declined (Discuss DNR or withdrawal of care, Hospice)? DNR status @ -no What co-morbidities impacted this encounter? (DM, HTN, Smoking, COPD, CAD, Cancer, CVA, ARF, Chemo, Hep., AIDS, mental health diagnosis, sleep apnea, morbid obesity)? @ -none Was patient admitted / discharged? Hospital course, mention meds given and route, prescriptions, significant lab abnormalities, going to OR and other pertinent info. @ - 83 female to the ER for evaluation of chest pain today. Patient has no acute cause of chest pain found in the ER no changes on EKG patient feels well chest pain resolved and can be discharged home Discharge Undiagnosed new problem with uncertain prognosis? @ -no Drug Therapy requiring intensive monitoring for toxicity (Heparin, Nitro, Insulin, Cardizem)? @ -no Were any procedures done? @ -no Diagnosis/symptom? @ -Chest pain Acute, or Chronic, or Acute on Chronic? @ -Acute Uncomplicated (without systemic symptoms) or Complicated (systemic symptoms)? @ -Complicated Side effects of treatment? @ -no Exacerbation, Progression, or Severe Exacerbation? @ -exacerbation Poses a threat to life or bodily function? How? (Chest pain, [place], [place], pneumonia, PE, COPD, DKA, ARF, appy, cholecystitis, CVA, Diverticulitis, Homicidal, Suicidal, threat to staff... and all critical care pts) @ -yes extremes of age Reevaluation #5: Differential Chest Pain: Stable Angina, Unstable Angina, STEMI, NSTEMI Aortic Dissection, Pneumothorax, Musculoskeletal, Esophageal Spasm GERD, Cholecystitis, Pancreatitis, Zoster, this is not meant to be an all-inclusive list. Chest Pain MDM - MDM 83 female to the ER for evaluation of chest pain today. Patient has no acute cause of chest pain found in the ER no changes on EKG patient feels well chest pain resolved and can be discharged home Disposition Clinical Impression: Chest pain, Atypical chest pain Disposition: HOME SELF-CARE Condition: Fair Instructions (If sedation given, give patient instructions): Chest Pain (ED) Is patient prescribed a controlled substance at d/c from ED?: No Referrals: Mateusz Sinclair MD [Primary Care Provider] - 1-2 days Time of Disposition: 21:00
[2024-10-06] MEDS: SODIUM CHLORIDE 0.9% 1,000 ML IV STA (20:17)
[2024-10-06] MEDS: SODIUM CHLORIDE 0.9% 500 ML 500 ML IV STA (20:19)
[2024-10-06] MEDS: ONDANSETRON 4 MG/2 ML VIAL IVP STA (20:20)
[2024-10-06] MEDS: MORPHINE SULFATE 4 MG/ML SYRINGE IV STA (20:21)
[2024-10-06 20:25] LABS: Basophils # (A) 0.05 10*3/uL (0.00-0.10); Basophils % (A) 0.7 %; Eosinophils # (A) 0.16 10*3/uL (0.04-0.35); Eosinophils % (A) 2.2 %; HCT 40.9 % (37.2-46.3); HGB 13.6 g/dL (12.0-15.0); Lymphocytes # (A) 1.67 10*3/uL (0.90-5.00); Lymphocytes % (A) 22.9 %; MCH 28.6 pg (27.0-32.0); MCHC 33.3 g/dL (32.0-37.0); MCV 86.1 fL (80.0-97.0); Monocytes # (A) 0.66 10*3/uL (0.20-1.00); Neutrophils # (A) 4.73 10*3/uL (1.80-7.70); Neutrophils % (A) 64.8 %; Platelet Count 168 10*3/uL (140-440); RBC 4.75 10*6/uL (4.10-5.20); RDW 14.6 % (11.5-14.5)
[2024-10-06 20:44] LABS: ALT 21 U/L (4-34); African American GFR (CKD) >90 (>60 ml/min/1.73 sqM); Anion Gap 5 mmol/L; Blood Urea Nitrogen 14 mg/dL (7-17); Calcium 9.4 mg/dL (8.4-10.2); Carbon Dioxide 27 mmol/L (22-30); Chloride 106 mmol/L (98-107); Glucose 96 mg/dL (74-99); Lipase 113 U/L (23-300); Non-African American GFR(CKD) 84 (>60 ml/min/1.73 sqM); Sodium 138 mmol/L (137-145); Total Bilirubin 1.3 mg/dL (0.2-1.3)
[2024-10-06 20:50] LABS: AST 33 U/L (14-36); Albumin 4.1 g/dL (3.5-5.0); Alkaline Phosphatase 66 U/L (38-126); Magnesium 1.9 mg/dL (1.6-2.3); Potassium 4.7 mmol/L (3.5-5.1); Total Protein 7.2 g/dL (6.3-8.2)
[2024-10-06 20:51] LABS: NT-Pro-B-Type Natriuretic Pept 75 pg/mL
[2024-10-06 20:52] LABS: Partial Thromboplastin Time 22.6 sec (22.0-30.0); Prothrombin Time 11.4 sec (10.0-12.5)
[2024-10-06 22:01] VITALS: BP 144/69; PULSE 66; RESP 17; TEMP 97.8
== END 2024-10-06 22:48 | disposition home or self-care (01) ==
LOC: EC 19:25
DX: R07.89 Other chest pain (principal); Z87.891 Personal history of nicotine dependence; Z91.030 Bee allergy status
CPT/HCPCS: 36415; 93005; 83880; 80053; 83690; 83735; 84484; 85025; 85610; 85730; 99285; 96374; 96375; 96361; J2270; J2405